=== PATIENT | male | born 1955 | race Caucasian/White ===

== ENCOUNTER → 2016-08-11 | Outpatient (CLI) | payer OTHER ==
[~2016-08-11] MED LIST: CHLO125TA PO; LOSA100T36 PO; PERCOCET PO; SPIRONOLACTONE PO; [UNRECOGNIZED DRUG - OTHER] SUBQ; apidra SQ; cephalexin PO; lantus insulin SUBQ; metformin PO; vit d2 PO
--- NOTE | 2016-08-11 13:08 | REP ---
RIGHT BREAST ULTRASOUND: 08/11/2016. Clinical history: The patient reports palpable finding 7 o'clock right breast. Comparison: Diagnostic mammogram today, breast ultrasound, diagnostic mammogram 10/12/2015. Findings: Sonographic evaluation of the lower outer quadrant right breast where the patient notes a palpable finding at the 7 o'clock position. There is heterogeneous predominately hypoechoic fatty tissue evident. There is no mass, cyst, architectural distortion or dilated duct. Impression: 1. Negative right breast ultrasound. No ultrasonographic finding. Please see mammogram report this date for final assessment and recommendation. Signed by Twan Mike MD 08/11/2016 04:43 P
--- NOTE | 2016-08-11 13:09 | REP ---
DIAGNOSTIC BILATERAL MAMMOGRAM: 08/11/2016. Clinical history: Palpable lump right breast lower outer quadrant. Similar complaint last year with prior diagnostic mammogram and breast ultrasound 10/12/2015. Findings: Standard two-view mammography performed with a triangle marker over the palpable finding placed by the patient in the lower outer quadrant right breast about the 7 o'clock position. The breasts are almost entirely fat. There is no evidence of gynecomastia. There is no soft tissue mass, clustered microcalcification or other secondary sign of malignancy. No tissue asymmetry. Axillary node with fatty replacement noted on the left side. A few skin calcifications are seen. Right breast ultrasound. Sonographic evaluation of the palpable area lower outer quadrant right breast showed no sonographic evidence of mass, architectural distortion, cyst or dilated ducts. Impression: 1. BIRADS ACR category 2, benign. Benign findings. No evidence of malignancy. A few skin calcifications are noted and a benign axillary node on the left but no finding in the palpable area described by the patient in the lower outer quadrant right breast. This mammogram was interpreted with the aid of an FDA-approved computer-aided detection system. A. Negative x-ray reports should not delay biopsy if a dominant or clinically suspicious mass is present. B. Four to eight percent of cancers are not identified by x-ray. C. Adenosis and dense breasts may obscure an underlying neoplasm. The patient letter being requested is M1 male. Signed by Twan Mike MD 08/11/2016 04:43 P
== END ==
LOC: M RAD 11:23
PROVIDERS: ATTEND Family Medicine
DX: N62 Hypertrophy of breast (principal)
CPT/HCPCS: 76642; G0204

== ENCOUNTER → 2016-10-03 | Outpatient (CLI) | payer OTHER | LOC: M LAB 07:58 | PROVIDERS: ATTEND Physician Assistant Medical | DX: E11.65 Type 2 diabetes mellitus with hyperglycemia (principal); E83.51 Hypocalcemia ==

== ENCOUNTER → 2016-12-04 | Outpatient (CLI) | payer OTHER ==
--- NOTE | 2016-12-05 02:28 | REP ---
Clinical: Acute cough . Comparison: 05/18/2008 . Technique: PA and lateral. Findings: The mediastinum and cardiac silhouette are normal. The lung tinajero are clear and without acute consolidation, effusion, or pneumothorax. The skeletal structures are intact and normal. Impression: 1. No acute cardiopulmonary process. Signed by Ray Lew MD 12/05/2016 02:19 A
== END ==
LOC: M WUC 12:47
PROVIDERS: ATTEND Physician Assistant
DX: R05 Cough (principal); R50.9 Fever, unspecified

== ENCOUNTER → 2017-02-14 | Outpatient (REF) | payer OTHER ==
[2017-02-14 16:48] LABS: ANION GAP 9 MEQ/L (8-16); BLOOD UREA NITROGEN 13 MG/DL (7-18); CALCIUM LEVEL 9.6 MG/DL (8.8-10.2); CARBON DIOXIDE LEVEL 27 MEQ/L (21-32); CHLORIDE LEVEL 105 MEQ/L (98-107); CREATININE FOR GFR 0.74 MG/DL (0.70-1.30); GLOMERULAR FILTRATION RATE > 60.0 (>49); GLUCOSE, FASTING 107 MG/DL (80-110); MAGNESIUM LEVEL 2.2 MG/DL (1.8-2.4); POTASSIUM SERUM 4.2 MEQ/L (3.5-5.1); SODIUM LEVEL 141 MEQ/L (136-145)
== END ==
LOC: M SFHCCLAY 11:08
PROVIDERS: ATTEND Family Medicine
DX: E11.40 Type 2 diabetes mellitus with diabetic neuropathy, unspecified (principal); Z79.4 Long term (current) use of insulin; I10 Essential (primary) hypertension

== ENCOUNTER → 2018-02-06 | Outpatient (REF) | payer OTHER ==
[2018-02-07 11:37] LABS: ANION GAP 11 MEQ/L (8-16); BLOOD UREA NITROGEN 19 MG/DL (7-18); CALCIUM LEVEL 8.8 MG/DL (8.8-10.2); CARBON DIOXIDE LEVEL 28 MEQ/L (21-32); CHLORIDE LEVEL 99 MEQ/L (98-107); CREATININE FOR GFR 0.94 MG/DL (0.70-1.30); GLOMERULAR FILTRATION RATE > 60.0 (>49); GLUCOSE, FASTING 169 MG/DL (70-100); POTASSIUM SERUM 3.4 MEQ/L (3.5-5.1); SODIUM LEVEL 138 MEQ/L (136-145)
[2018-02-07 15:35] LABS: ESTIMATED AVERAGE GLUCOSE 169 MG/DL (60-110); HEMOGLOBIN A1c 7.5 %
== END ==
LOC: M SFHCCLAY 16:27
DX: E11.9 Type 2 diabetes mellitus without complications (principal); I10 Essential (primary) hypertension

== ENCOUNTER 2018-07-22 15:31 | Observation (INO) | payer OTHER ==
[~2018-07-22] VITALS: Ht 167.6 cm; Wt 117.5 kg
[~2018-07-22 15:31] MED LIST changes: -LOSA100T36 PO; +LOSA100T50 PO
--- NOTE | 2018-07-22 16:44 | REP ---
CT Head without contrast HISTORY: Infarction COMPARISON: MR 02/14/2008 Areas of decreased attenuation are present in the periventricular white matter. This represents small-vessel ischemic disease. There is no intraparenchymal hemorrhage, acute infarct, mass or midline shift. The ventricular system and cortical sulci are dilated consistent with mild volume loss. There is no extra cerebral collection. There is no fracture. The visualized sinuses are clear. IMPRESSION: 1. Small vessel ischemic disease. 2. Mild volume loss. Electronically Signed by Morgan Zamora MD 07/22/2018 04:36 P
[2018-07-22 16:54] LABS: BASO % 0.3 % (0.0-1.0); EOS # 0.1 10^3/uL (0.0-0.50); EOS % 0.5 % (0.0-3.0); HEMATOCRIT 47.5 % (42.0-52.0); HEMOGLOBIN 16.6 g/dl (13.5-17.5); LYMPH # 2.7 10^3/uL (1.5-4.5); LYMPH % 25.7 % (24.0-44.0); MEAN CORPUSCULAR HGB CONC 34.9 g/dl (32.0-36.5); MEAN CORPUSCULAR VOLUME 88.8 fl (80.0-96.0); MONO # 0.8 10^3/uL (0.0-0.8); MONO % 7.6 % (0.0-5.0); NEUTROPHILS # 6.9 10^3/uL (1.8-7.7); NEUTROPHILS % 65.1 % (36.0-66.0); RED BLOOD COUNT 5.35 10^6/uL (4.30-6.10); WHITE BLOOD COUNT 10.7 10^3/uL (4.0-10.0)
[2018-07-22 17:27] LABS: INR 0.87; PLATELET COUNT, AUTOMATED 253 10^3/uL (150-450); PROTHROMBIN TIME 11.9 SECONDS (12.1-14.4)
[2018-07-22 17:28] LABS: PARTIAL THROMBOPLASTIN TIME 23.8 SECONDS (25.4-37.6)
[2018-07-22 17:35] LABS: ALBUMIN 3.8 GM/DL (3.2-5.2); ALT/SGPT 34 U/L (12-78); BILIRUBIN,DIRECT < 0.1 MG/DL (0.0-0.2); BILIRUBIN,TOTAL 0.3 MG/DL (0.2-1.0); BLOOD UREA NITROGEN 24 MG/DL (7-18); CALCIUM LEVEL 9.4 MG/DL (8.8-10.2); CARBON DIOXIDE LEVEL 24 MEQ/L (21-32); CHLORIDE LEVEL 100 MEQ/L (98-107); CPK CREATINE PHOSPHOKINASE 202 U/L (39-308); CREATININE FOR GFR 0.89 MG/DL (0.70-1.30); FREE T4 1.17 NG/DL (0.76-1.46); GLOMERULAR FILTRATION RATE > 60.0 (>49); GLUCOSE, FASTING 154 MG/DL (70-100); LIPASE 143 U/L (73-393); MB/CK RELATIVE INDEX 1.34 (< OR =4); NT-PRO BNP 63 PG/ML (<125); POTASSIUM SERUM 4.1 MEQ/L (3.5-5.1); SODIUM LEVEL 136 MEQ/L (136-145); THYROID STIMULATING HORMONE 0.794 uIU/ML (0.358-3.740); TOTAL PROTEIN 7.5 GM/DL (6.4-8.2); TROPONIN I < 0.02 NG/ML (< 0.10)
--- NOTE | 2018-07-22 18:33 | REP ---
Portable chest x-ray: Two views: History: CVA. Comparison study: December 04, 2016. Findings: EKG electrodes are seen. The lungs are well inflated and clear. The pleural angles are sharp. Heart is not felt to be enlarged. Pulmonary vasculature is not increased. No significant bony abnormality. Impression: No active disease. Electronically Signed by Joshua Ramey MD 07/23/2018 08:08 A
[2018-07-22] MEDS ORDERED: TRAZ-163 PO (19:53)
[2018-07-22] MEDS ORDERED: BUPR300T34 PO (19:53)
[2018-07-22] MEDS ORDERED: CHLO25TA PO (19:53)
[2018-07-22] MEDS ORDERED: ADME100I SC (19:53)
[2018-07-22] MEDS ORDERED: STEG5TAB PO (19:53)
[2018-07-22] MEDS ORDERED: LORA1TAB12 PO (19:53)
[2018-07-22] MEDS ORDERED: TRUL0.5I SC (19:53)
[2018-07-22] MEDS ORDERED: METF500T13 PO (19:53)
[2018-07-22] MEDS ORDERED: SPIR-10 PO (19:53)
[2018-07-22] MEDS ORDERED: BASA100I SC (19:53)
[2018-07-22] MEDS ORDERED: GABA-843 PO (19:53)
[2018-07-22] MEDS ORDERED: AMLO5TAB6 PO (19:53)
[2018-07-22] MEDS ORDERED: LORazepam 2 MG/ML VIAL (J2060) IV STA (19:53)
--- NOTE | 2018-07-22 20:12 | ECGEPIP ---
Stationary ECG Study [facility] - ED Test Date: 2018-07-22 Pat Name: GULSHAN CORDON Department: Room: - Gender: M Radio Repairer Domestic: PARVEEN : 1955 Requested By: Kyle Figueredo Order Number: [id number] Reading MD: Kyle Figueredo Measurements Intervals [place] Rate: 90 P: 76 SD: 195 QRS: -18 QRSD: 119 T: 65 QT: 361 QTc: 443 Interpretive Statements SINUS RHYTHM WITH OCCASIONAL VENTRICULAR PREMATURE COMPLEXES WITH OCCASIONAL SUP SUPRAVENTRICULAR PREMATURE COMPLEXES MODERATE INTRAVENTRICULAR CONDUCTION DELAY NONSPECIFIC T-WAVE ABNORMALITY DELAYED R WAVE PROGRESSION CW 12/15/13 RATE INCREASED INCREASED ECTOPY Electronically Signed On 07-22-2018 20:12:14 EST by Kyle Figueredo
--- NOTE | 2018-07-22 21:22 | REPVR ---
EXAM: MR Angiogram Head Without Contrast, Arteries EXAM DATE/TIME: 07/22/2018 8:40 PM CLINICAL HISTORY: 63 years old, male; Signs and symptoms; Dizziness and giddiness and weakness; Additional info: CVA TECHNIQUE: MR angiogram head without contrast. Exam focused on the arteries. COMPARISON: CT Head without contrast 07/22/2018 4:23 PM FINDINGS: Anterior circulation: Normal flow signal and luminal caliber in the petrous, cavernous and supraclinoid internal carotid arteries. Normal appearance of the anterior cerebral artery branches and middle cerebral artery branches through the MCA trifurcations. No occlusion, high-grade focal stenosis or dissection. No aneurysm. Posterior circulation: Normal distal vertebral arteries, with patent normal caliber basilar artery, and normal superior cerebellar and posterior cerebral arteries. No occlusion, high-grade stenosis or aneurysm. Right P1 segment is diminutive and normal caliber right posterior cerebral artery is supplied by a posterior communicating artery IMPRESSION: Unremarkable MR angiogram of the [place] and intracranial vertebrobasilar system. Variant anatomy of the right posterior circulation without hemodynamic compromise Electronically signed by: Eyad Mclaughlin On 07/22/2018 21:22:21 PM
--- NOTE | 2018-07-22 21:28 | REPVR ---
EXAM: MR Head Without Contrast EXAM DATE/TIME: 07/22/2018 8:40 PM CLINICAL HISTORY: 63 years old, male; Signs and symptoms; Dizziness and other: Shaking, confusion; Additional info: CVA TECHNIQUE: MR of the head without contrast. COMPARISON: CT Head without contrast 07/22/2018 4:23 PM FINDINGS: No abnormal restriction of diffusion to indicate acute CVA. Midline structures and cerebellar tonsillar position appear normal. Ventricles, cisterns and sulci are symmetrically prominent. No intracranial mass, midline shift or abnormal extra-axial fluid. No acute intracranial hemorrhage. No abnormal white matter signal on FLAIR and T2 sequences. Optic chiasm and pituitary infundibulum appear normal. Normal vascular flow voids in major intracranial arteries and dural venous sinuses. Paranasal sinuses are clear. Mastoid air cells are normally aerated. Optic globes and orbits are unremarkable. IMPRESSION: No acute intracranial abnormality. Mild age-related symmetric atrophy Electronically signed by: Eyad Mclaughlin On 07/22/2018 21:28:28 PM
[2018-07-22] MEDS ORDERED: NS 1,000 ML IV SCH (23:28)
[2018-07-22] MEDS ORDERED: ACETAMINOPHEN TAB 650MG DOSE (2X325MG) PO PRN (23:30)
[2018-07-22] MEDS ORDERED: METOCLOPRAMIDE 10 MG TAB PO PRN (23:30)
[2018-07-22] MEDS ORDERED: MECLIZINE 12.5 MG TAB PO PRN (23:45)
[2018-07-22] MEDS ORDERED: GLUCAGON FOR INJ 1 MG VIAL (J1610) SC PRN (23:45)
[2018-07-22] MEDS ORDERED: GLUCOSE 4 GM CHEW TABLET PO PRN (23:45)
[2018-07-22] MEDS ORDERED: DEXTROSE 50% 50 ML SYRINGE IV PRN (23:45)
[2018-07-22] MEDS: GABAPENTIN 300 MG CAP PO SCH (23:57)
[2018-07-23] MEDS: HEPARIN SOD (PORCINE) 5000 UNITS/ML VIAL SC SCH ×3 (06:34→22:57)
--- NOTE | 2018-07-23 06:57 | HPE ---
DATE OF ADMISSION: 07/22/2018 CHIEF COMPLAINT: Intermittent dizziness and confusion. HISTORY OF PRESENT ILLNESS: The patient is a 63-year-old male. He has significant past medical history of depression, anxiety, diabetes with neuropathy, hypertension. He presents to the emergency room with a 2-week complaint of what he describes as intermittent confusion. States he may be driving to [employer] and find himself somewhere else. He is forgetful. He also states he has dizziness. It is somewhat positional. He notices it when he gets up. He does not describe it as vertiginous symptoms. He denies any slurred speech but states last week he forgot how to spell certain words. He does say his mood has kind of been poor lately, though he does not admit to feeling depressed or loss in interest in things he previously does. He denies any headache. He denies any cough, fevers, chills, chest pain, abdominal pain, urinary symptoms, constipation, or diarrhea. In the emergency room, he appears nontoxic. He had an MRA/MRI of the brain, CT, as well as chest x-ray, which were all unremarkable. I believe the patient's symptoms may be secondary to depression in the elderly versus possible benign paroxysmal positional vertigo (BPPV) and rule out hypoglycemia versus orthostatics. Will also assess for reversible causes of possible dementia. The patient again appears nontoxic. PAST MEDICAL HISTORY: See history of present illness (HPI). PAST SURGICAL HISTORY: He has had hernia repair and tonsillectomy. ALLERGIES: To SULFA ANTIBIOTICS; reaction is unknown. HOME MEDICATIONS: - Norvasc - bupropion - chlorthalidone - gabapentin - losartan - metformin - spironolactone - multiple insulin analogs including Trulicity, Basaglar, Admelog - Steglatro - metformin - trazodone SOCIAL HISTORY: Denies tobacco, alcohol, illicit drug use. FAMILY HISTORY: Is noncontributory. REVIEW OF SYSTEMS: A 12-point review of systems was completed, all of which were negative except those listed in the HPI. ADMISSION VITAL SIGNS: Temperature 97.7, pulse of 93, respirations of 20, blood pressure 185/86, saturating at 95% on room air. PHYSICAL EXAMINATION: General: He is well nourished, in no apparent distress. Head: Is normocephalic, atraumatic. Eyes: Extraocular movements are intact. Pupil equal, round, reactive to light. Neck: Is supple. No JVP. Lungs: Are clear to auscultation bilaterally. No crackles, wheezes, rales, or rhonchi. Cardiovascular: Regular rate, rhythm. Normal S1, S2. No murmurs, gallops, or rubs. Abdomen: Is soft, nontender, nondistended. Positive bowel sounds. No rebound or guarding. Extremities: No pitting edema or calf tenderness. Skin: Is intact. No rashes, lesions, or breakdown. Neurological exam: Alert and oriented (A and O) times three. No focal deficits appreciated on exam. Coordination is intact. LABS AND IMAGING COMPLETED IN THE EMERGENCY ROOM: White count of 10, hemoglobin and hematocrit of 16/47, platelet count of 253. Coagulation panel within normal limits. Chemistry shows BUN and creatinine of 24/0.89. Troponins are negative. TSH within normal limits. UA is unremarkable. Blood sugar of 134. MRA of the brain shows unremarkable MRA. MRI: No acute intracranial abnormality. Chest x-ray: No active disease. Head CT: Small vessel ischemic disease. ASSESSMENT AND PLAN: 1. Dizziness. This is possibly secondary to polypharmacy versus questionable episode of hypoglycemia versus BPPV versus orthostatics. Will do daily orthostatics. Will fluid hydrate. Will place the patient on meclizine and Reglan. Will get physical therapy (PT) evaluation. Will keep the patient on telemetry to rule out any arrhythmia. Will recycle the troponins and EKG. 2. Intermittent confusion. Will assess for any reversible causes of dementia. Will get a thyroid-stimulating hormone (TSH), B12, and rapid plasma reagin (RPR). It does not seem to be an infectious etiology. This may also be secondary to depression. For the rest of his chronic medical conditions: 3. For diabetes, we will hold most of his insulin analogs. Will hold metformin. Will place him on 64 units of Lantus as well as insulin sliding scale and gabapentin for diabetic nephropathy. 4. For hypertension, continue chlorthalidone, losartan, spironolactone. 5. Supportive deep venous thrombosis (DVT) prophylaxis. Heparin subcutaneously. 6. Gastrointestinal (GI) prophylaxis. Not indicated. 7. Diet. Cardiac, diabetic diet. Patient to be placed on the observation unit.
[2018-07-23 07:05] LABS: HEMATOCRIT 45.6 % (42.0-52.0); HEMOGLOBIN 15.8 g/dl (13.5-17.5); MEAN CORPUSCULAR HGB CONC 34.6 g/dl (32.0-36.5); MEAN CORPUSCULAR VOLUME 89.6 fl (80.0-96.0); PLATELET COUNT, AUTOMATED 249 10^3/uL (150-450); RED BLOOD COUNT 5.09 10^6/uL (4.30-6.10); WHITE BLOOD COUNT 8.1 10^3/uL (4.0-10.0)
[2018-07-23 07:28] LABS: HEMOGLOBIN A1c 7.4 %
[2018-07-23] MEDS: HumaLOG INSULIN (NovoLOG) PER UNIT SC SCH ×3 (07:30→17:51)
[2018-07-23 07:47] LABS: BLOOD UREA NITROGEN 19 MG/DL (7-18); CALCIUM LEVEL 9.1 MG/DL (8.8-10.2); CARBON DIOXIDE LEVEL 27 MEQ/L (21-32); CHLORIDE LEVEL 101 MEQ/L (98-107); GLOMERULAR FILTRATION RATE > 60.0 (>49); GLUCOSE, FASTING 119 MG/DL (70-100); POTASSIUM SERUM 3.2 MEQ/L (3.5-5.1); SODIUM LEVEL 137 MEQ/L (136-145); TROPONIN I < 0.02 NG/ML (< 0.10)
[2018-07-23] MEDS: GABAPENTIN 300 MG CAP PO SCH (08:56)
[2018-07-23] MEDS: amLODIPine 5 MG TAB PO SCH (08:57)
[2018-07-23] MEDS: LOSARTAN 50 MG TAB PO SCH (09:02)
[2018-07-23] MEDS: CHLORTHALIDONE 25 MG TAB PO SCH (09:03)
[2018-07-23] MEDS: LEVEMIR (INSULIN DETEMIR) 1 UNITS/0.01ML SC SCH (09:05)
[2018-07-23] MEDS: buPROPion **XL** TABLET 150MG (WELLBUTRIN XL) PO SCH (09:33)
[2018-07-23] MEDS: SPIRONOLACTONE 12.5MG PER 1/2 TABLET PO SCH (09:33)
[2018-07-23] MEDS ORDERED: POTASSIUM CHLORIDE 10 MEQ SR TABLET PO ONE ×2 (10:00→18:00)
[2018-07-23 13:48] VITALS: BP 130/80
--- NOTE | 2018-07-23 17:33 | IPNPDOC ---
Subjective Date Seen The patient was seen on 07/23/18. Subjective Chief Complaint/HPI Feels well this am. No dizziness currently. Mental status clear Constitutional: Denies: Chills, Fever Pulmonary: Denies: Dyspnea, Cough Cardiovascular: Denies: Chest Pain, Palpitations Gastrointestinal: Denies: Nausea, Vomiting, Abdominal Pain, Diarrhea, C onstipation Genitourinary: Reports: Frequency Objective Physical Examination General Exam: Positive: Alert, No Acute Distress Chest Exam: Positive: Clear to auscultation, Normal air movement Heart Exam: Positive: Rate Normal, Regular Rhythm Abdomen Exam: Positive: Normal bowel sounds, Soft; Negative: Tenderness Extremity Exam: Negative: Edema Assessment /Plan Problems (1) Dizziness Status: Acute Response to Treatment: Improving Problem Text: His dizziness can occur in any position - not orthostatic or postural. Describes this as a "fuzzy headed feeling". not off balance. No syncope. No associated focal neurologic defecits. Symptoms have been occuring for the past few weeks since switching to Steglatro (preferred by insurance) We stopped this, gave KAREN and will monitor trend (2) Confusion Status: Resolved Problem Text: May be related to medications. Either related to the Steglatro which is new or from his Gabapentin which he has been using regularly for the past few weeks (normally only take s dose from time to time. MRI did not show any acute findings TSH normal B12 and RPR pending (3) Diabetes Status: Chronic Response to Treatment: Stable Problem Text: HbA1c shows fair control but meds ahve been recently adjusted due to insurance preferance. we have held the Stglatro due to above potential side efects. Monitor trends. Plan/VTE VTE Prophylaxis Ordered?: Yes (SQ heparin) VS, I&O, 24H, Fishbone Vital Signs/I&O Vital Signs Date Time Temp Pulse Resp B/P (MAP) Pulse Ox O2 Delivery O2 Flow Rate FiO2 07/23/18 13:48 98.8 77 18 130/80 (97) 94 07/22/18 22:01 Room Air Laboratory Data 24H LABS Laboratory Tests 2 07/22/18 17:35: Urine Color STRAW, Urine Appearance CLEAR, Urine pH 5.0, Urine Specific [place] 1.024, Urine Protein NEGATIVE, Urine Glucose (UA) 3+H, Urine Ketones NEGATIVE, Urine Blood 1+H, Urine Nitrite NEGATIVE, Urine Bilirubin NEGATIVE, Urine Urobilinogen 0.2, Urine Leukocyte Esterase NEGATIVE, Urine WBC (Auto) 0, Urine RBC (Auto) 3, Urine Hyaline Casts (Auto) 0, Urine Bacteria (Auto) NEGATIVE, Urine Squamous Epithelial Cells 0, Urine Sperm (Auto) 07/23/18 06:38: Nucleated Red Blood Cells % (auto) 0.0, Anion Gap 9, Glomerular Filtration Rate > 60.0, Estimated Mean Plasma Glucose 166H, Hemoglobin A1c 7.4, Blood Urea Nitrogen 19H, Creatinine 0.80, Sodium Level 137, Potassium Level 3.2#L, Chloride Level 101, Carbon Dioxide Level 27, Calcium Level 9.1, Troponin I < 0.02 07/23/18 07:22: Bedside Glucose (Misc Panel) 108 07/23/18 14:15: Bedside Glucose (Misc Panel) 113 07/23/18 16:27: Bedside Glucose (Misc Panel) 170H CBC/BMP Laboratory Tests 07/23/18 06:38 Red Blood Count 5.09, Mean Corpuscular Volume 89.6, Mean Corpuscular Hemoglobin 31.0, Mean Corpuscular Hemoglobin Concent 34.6, Red Cell Distribution Width 12.7, Calcium Level 9.1 Microbiology Microbiology 07/22/18 Blood Culture - Preliminary, Resulted No growth after 24 hours . All specim... 07/22/18 Blood Culture - Preliminary, Resulted No growth after 24 hours . All specim... HANSA THORNTON PA-C Jul 23, 2018 17:33
[2018-07-23 18:08] VITALS: BP_SYST 158; BP_SYST 162; BP_DIAS 80; BP_DIAS 85
[2018-07-23 22:00] VITALS: BP 128/60
[2018-07-24 06:00] VITALS: BP 137/69
[2018-07-24] MEDS: HEPARIN SOD (PORCINE) 5000 UNITS/ML VIAL SC SCH (06:14)
[2018-07-24 06:28] LABS: BLOOD UREA NITROGEN 20 MG/DL (7-18); CALCIUM LEVEL 9.1 MG/DL (8.8-10.2); CARBON DIOXIDE LEVEL 27 MEQ/L (21-32); CHLORIDE LEVEL 100 MEQ/L (98-107); CREATININE FOR GFR 0.86 MG/DL (0.70-1.30); GLOMERULAR FILTRATION RATE > 60.0 (>49); GLUCOSE, FASTING 140 MG/DL (70-100); POTASSIUM SERUM 3.3 MEQ/L (3.5-5.1); SODIUM LEVEL 137 MEQ/L (136-145)
[2018-07-24] MEDS: LEVEMIR (INSULIN DETEMIR) 1 UNITS/0.01ML SC SCH (08:10)
[2018-07-24] MEDS: HumaLOG INSULIN (NovoLOG) PER UNIT SC SCH ×2 (08:10→12:24)
[2018-07-24 08:11] VITALS: BP 141/73
[2018-07-24] MEDS: LOSARTAN 50 MG TAB PO SCH (08:11)
[2018-07-24] MEDS: buPROPion **XL** TABLET 150MG (WELLBUTRIN XL) PO SCH (08:11)
[2018-07-24] MEDS: amLODIPine 5 MG TAB PO SCH (08:11)
--- NOTE | 2018-07-24 08:34 | ECGEPIP ---
Stationary ECG Study [facility] Test Date: 2018-07-23 Pat Name: GULSHAN CORDON Department: Room: 06-19 Gender: M Office Engineer: simone : 1955 Requested By: PRIYA SUNDAY Order Number: [id number] Reading MD: Qi Bajwa Measurements Intervals [place] Rate: 67 P: 79 MS: 221 QRS: -5 QRSD: 125 T: 31 QT: 403 QTc: 427 Interpretive Statements SINUS RHYTHM WITH FIRST DEGREE AV BLOCK AND NON-CONDUCTED PAC NONSPECIFIC STT-WAVE ABNORMALITY SIMILAR TO 07/22/18, PVC'S ARE NO LONGER PRESENT Electronically Signed On 07-24-2018 8:34:23 EST by Qi Bajwa
[2018-07-24 10:53] LABS: VITAMIN B12 LEVEL 366 PG/ML (232-1245)
[2018-07-24] MEDS ORDERED: KLOR10TA76 PO (11:06)
[2018-07-24 11:14] LABS: MAGNESIUM LEVEL 2.2 MG/DL (1.8-2.4)
[2018-07-24 11:27] LABS: HEMATOCRIT 48.2 % (42.0-52.0); HEMOGLOBIN 16.2 g/dl (13.5-17.5); MEAN CORPUSCULAR HEMOGLOBIN 30.6 pg (27.0-33.0); MEAN CORPUSCULAR HGB CONC 33.6 g/dl (32.0-36.5); MEAN CORPUSCULAR VOLUME 91.1 fl (80.0-96.0); PLATELET COUNT, AUTOMATED 277 10^3/uL (150-450); RED BLOOD COUNT 5.29 10^6/uL (4.30-6.10); WHITE BLOOD COUNT 8.7 10^3/uL (4.0-10.0)
[2018-07-24] MEDS ORDERED: POTASSIUM CHLORIDE 10 MEQ SR TABLET PO ONE (12:00)
[2018-07-24] MEDS: SPIRONOLACTONE 12.5MG PER 1/2 TABLET PO SCH (12:24)
[2018-07-24] MEDS: CHLORTHALIDONE 25 MG TAB PO SCH (12:25)
[2018-07-25] MEDS ORDERED: POTASSIUM CHLORIDE 10 MEQ SR TABLET PO SCH (09:00)
--- NOTE | 2018-07-25 11:24 | DSES ---
DATE OF ADMISSION: 07/22/2018 DATE OF DISCHARGE: 07/24/2018 The patient is a 63-year-old patient of Dr. Campa is to presented with feeling of dizziness and confusion. He had been driving to [place] but found himself heading toward [employer], as though he had forgotten how to get to [place], and he has a feeling that he describes as a fullness in his head. These symptoms have been going on intermittently for the past few weeks. He relates that at the beginning of the year his insurance adjusted his diabetic medications, and he is been now on Steglatro, which is preferred by his insurance. He thinks that some of his symptoms have been going on since starting this Steglatro. He also relates that he has been using his gabapentin more often. Normally he only takes this on occasion but has been taking it pretty much scheduled twice a day for the last couple weeks as well for increased neuropathy symptoms, which he also reports he thinks was from the Steglatro. PERTINENT LABORATORIES ON ADMISSION: White count 10.7, hemoglobin 16, platelets 253,000. Sodium 136, potassium 4.1, BUN 24, creatinine 0.89. RPR was nonreactive. TSH 0.79, B12 of 366. MRI of the brain did not show any acute events. HOSPITAL COURSE: 1. The patient was admitted for a some episodic dizziness and confusion. His MRI showed some mild atrophy. No other acute events. His dementia workup was fairly unrevealing. His B12 is 366 but is not low. At this point, it is thought that his symptoms may be related to the Steglatro, which has been discontinued, or perhaps the use of the gabapentin twice a day, which he is advised to cut back to the occasional use on an as-needed basis, as he had been using it before. He also developed some hypokalemia in the hospital, which we were uncertain why that happened, but it appears he has had some tendency toward hypokalemia in the past. On the date of discharge he does feel a little bit shaky. His telemetry shows sinus rhythm with occasional premature atrial contraction (PAC) but otherwise no arrhythmias during the hospitalization. His blood sugar is normal. His vital signs are stable. He feels as though he is stable to go home. He does have some tendency toward anxiety, for which he uses lorazepam on an as-needed basis, and he thinks that he is just feeling a little anxious but feels better after hearing the results of all of his workup. At this point we will replace his potassium further with 40 mEq of potassium prior to going home and then send him home with 20 mEq daily. A magnesium level has been drawn and will need to be followed up as an outpatient. 2. Diabetes. As above, the Steglatro has been discontinued. While in the hospital we maintained him on insulin only but at home will have him go back on all of his usual medications, including his Basaglar and Trulicity. He will remain off the Steglatro. His hemoglobin A1c in the hospital was 7.4. He will need monitoring of his blood sugars as an outpatient and further adjustments to his diabetic regimen as an outpatient. The patient is stable for discharge home. He will receive potassium 40 mEq prior to discharge. A magnesium level has been ordered off the blood and lab and is pending at the time of discharge. He will be discharged home on potassium 20 mEq daily, Admelog per sliding scale, amlodipine 5 mg daily, Basaglar 64 units daily, bupropion 300 mg daily, chlorthalidone 25 mg daily, gabapentin 300 mg twice a day as needed, lorazepam 0.5 mg twice a day as needed, losartan 100 mg daily, metformin 1000 mg twice a day, spironolactone 12.5 mg daily, trazodone 150 mg at bedtime, Trulicity 1.5 mg weekly. His Steglatro has been discontinued. DISCHARGE DIAGNOSES: 1. Dizziness. 2. Confusion. 3. Hypokalemia. 4. Diabetes mellitus, type 2. 5. Anxiety
== END 2018-07-24 14:25 | disposition home or self-care (01) ==
LOC: M ED 15:31 → M ED INP 23:28 → M MSPAV 07-23 13:46
PROVIDERS: ADMIT Internal Medicine; ATTEND Family Medicine
DX: R42 Dizziness and giddiness (principal); R41.0 Disorientation, unspecified; E87.6 Hypokalemia; E11.40 Type 2 diabetes mellitus with diabetic neuropathy, unspecified; Z79.84 Long term (current) use of oral hypoglycemic drugs; I10 Essential (primary) hypertension; F41.9 Anxiety disorder, unspecified; F32.9 Major depressive disorder, single episode, unspecified; Z79.899 Other long term (current) drug therapy; Z88.2 Allergy status to sulfonamides
CPT/HCPCS: 36415; 70450; 70544; 70551; 71045; 80048; 80076; 81001; 82550; 82553; 82607; 83036; 83690; 83735; 83880; 84439; 84443; 85025; 85027; 85610; 85730; 86780; 86850; 86900; 86901; 87040; 93005; 93041; 94760; 96372; 96374; 97161; 99285; J2060

== ENCOUNTER → 2018-08-20 | Outpatient (CLI) | payer OTHER ==
[~2018-08-20] MED LIST changes: +ADME100I SC; +AMLO5TAB6 PO; +BASA100I SC; +BUPR300T34 PO; +CHLO25TA PO; +GABA-843 PO; +KLOR10TA76 PO; +LORA1TAB12 PO; +METF500T13 PO; +SPIR-10 PO; +STEG5TAB PO; +TRAZ-163 PO; +TRUL0.5I SC
[2018-08-20 12:27] LABS: CREATININE, URINE 71.3 MG/DL; MAU/CREAT RATIO 193.5 MCG/MG (0.0-30.0)
[2018-08-20 13:01] LABS: BLOOD UREA NITROGEN 19 MG/DL (7-18); CALCIUM LEVEL 9.2 MG/DL (8.8-10.2); CARBON DIOXIDE LEVEL 24 MEQ/L (21-32); CHLORIDE LEVEL 103 MEQ/L (98-107); CHOLESTEROL LEVEL 163 MG/DL (<200); CHOLESTEROL RISK RATIO 2.202 (<5); CREATININE FOR GFR 0.75 MG/DL (0.70-1.30); GLOMERULAR FILTRATION RATE > 60.0 (>49); GLUCOSE, FASTING 132 MG/DL (70-100); HDL CHOLESTEROL 74 MG/DL (>40); LDL CHOLESTEROL 72 MG/DL (<100); NON-HDL-C 89 MG/DL; SODIUM LEVEL 137 MEQ/L (136-145); TRIGLYCERIDES LEVEL 84 MG/DL (<150)
[2018-08-21 10:27] LABS: HIV 1&2 SCREEN CENTAUR NEGATIVE (NEGATIVE)
== END ==
LOC: M LAB 10:50
PROVIDERS: ATTEND Family Medicine
DX: E11.9 Type 2 diabetes mellitus without complications (principal); Z11.4 Encounter for screening for human immunodeficiency virus [HIV]; Z11.59 Encounter for screening for other viral diseases

== ENCOUNTER → 2018-10-24 | Outpatient (CLI) | payer OTHER ==
[2018-10-24 10:44] LABS: BLOOD UREA NITROGEN 15 MG/DL (7-18); CALCIUM LEVEL 8.2 MG/DL (8.8-10.2); CARBON DIOXIDE LEVEL 25 MEQ/L (21-32); CHLORIDE LEVEL 105 MEQ/L (98-107); CREATININE FOR GFR 0.84 MG/DL (0.70-1.30); GLOMERULAR FILTRATION RATE > 60.0 (>49); GLUCOSE, FASTING 200 MG/DL (70-100); POTASSIUM SERUM 4.2 MEQ/L (3.5-5.1); SODIUM LEVEL 139 MEQ/L (136-145)
== END ==
LOC: M LAB 09:47
PROVIDERS: ATTEND Nurse Practitioner Family
DX: E11.65 Type 2 diabetes mellitus with hyperglycemia (principal)

== ENCOUNTER 2018-12-23 06:12 | Day surgery (SDC) | payer OTHER ==
[~2018-12-23] VITALS: Ht 167.6 cm; Wt 120.7 kg
[~2018-12-23 06:12] MED LIST changes: +ALEV220T22 PO; +NS 1,000 ML IV ONE
[2018-12-23] MEDS ORDERED: PROPOFOL 200 MG/20 ML VIAL As Ordered ONE (07:36)
[2018-12-23] MEDS ORDERED: LIDOCAINE 2% INJ 100 MG/5 ML SDV (FOR ANES.) As Ordered ONE (07:36)
--- NOTE | 2018-12-23 08:22 | ROOR ---
Patient Name: Andrea Pacheco Procedure Date: 12/23/2018 8:01 AM Date of : 1955 Age: 63 Room: [facility] Gender: Male Note Status: Finalized Procedure: Total Colonoscopy to Cecum Indications: Screening for colorectal malignant neoplasm Providers: Chad Song MD Referring MD: Alfredo Campa MD Requesting Provider: Medicines: Monitored Anesthesia Care Complications: No immediate complications. Procedure: Pre-Anesthesia Assessment: - The heart rate, respiratory rate, oxygen saturations, blood pressure, adequacy of pulmonary ventilation, and response to care were monitored throughout the procedure. The Colonoscope was introduced through the anus and advanced to the cecum, identified by appendiceal orifice and ileocecal valve. The colonoscopy was performed without difficulty. The patient tolerated the procedure well. The quality of the bowel preparation was excellent. Findings: The perianal and digital rectal examinations were normal. Non-bleeding internal hemorrhoids were found during retroflexion. The hemorrhoids were small and Grade I (internal hemorrhoids that do not prolapse). Multiple small and large-mouthed diverticula were found in the recto-sigmoid colon, sigmoid colon and descending colon. The exam was otherwise without abnormality on direct and retroflexion views. Impression: - Non-bleeding internal hemorrhoids. - Diverticulosis in the recto-sigmoid colon, in the sigmoid colon and in the descending colon. - The examination was otherwise normal on direct and retroflexion views. - No specimens collected. - The exam was otherwise normal to the cecum. Recommendation: - Patient has a contact number available for emergencies. The signs and symptoms of potential delayed complications were discussed with the patient. Return to normal activities tomorrow. Written discharge instructions were provided to the patient. - High fiber diet. - Discharge patient to home. - Continue present medications. - Repeat colonoscopy in 10 years for screening purposes. - Return to referring physician. - The findings and recommendations were discussed with the patient's family. Chad Song MD Chad Song MD 12/23/2018 8:21:49 AM Electronically signed by Chad Song MD Number of Addenda: 0 Note Initiated On: 12/23/2018 8:01 AM Estimated Blood Loss: Estimated blood loss: none.
[2018-12-23 08:55] VITALS: BP 175/94
== END 2018-12-23 08:57 | disposition home or self-care (01) ==
LOC: M OPP 06:12
PROVIDERS: ATTEND Internal Medicine Gastroenterology
DX: Z12.11 Encounter for screening for malignant neoplasm of colon (principal); K64.0 First degree hemorrhoids; K57.30 Diverticulosis of large intestine without perforation or abscess without bleeding; Z79.4 Long term (current) use of insulin; Z79.899 Other long term (current) drug therapy

== ENCOUNTER 2019-06-23 03:54 | Emergency (ER) | payer MEDICARE, MEDICAID ==
[~2019-06-23] VITALS: Ht 167.6 cm; Wt 120.5 kg
[~2019-06-23 03:54] MED LIST changes: -AUGM500T34 PO; -BUPR300T34 PO; +BUPR300T92 PO; -JARD1TAB; -LORA1TAB12 PO; +LORA1TAB4 PO; -PRED20TA PO; -TRAZ-163 PO; +TRAZ-257 PO; -VENTAER
[2019-06-23] MEDS ORDERED: JARD1TAB (04:05)
[2019-06-23] MEDS ORDERED: VENTAER (04:05)
[2019-06-23] MEDS ORDERED: KETOROLAC 30 MG/ML VIAL (J1885) IV ONE (05:15)
[2019-06-23] MEDS ORDERED: IPRATROPIUM 0.5MG/ALBUTEROL 2.5MG INH SOL UD 3ML (DUONEB)(J7620) NEB ONE (05:15)
[2019-06-23] MEDS ORDERED: BUPIVACAINE LIPOSOME/PF 1.3% 20ML VIAL (13.3MG/ML)(EXPAREL)(C9290 PER1MG) INFIL ONE (05:15)
[2019-06-23] MEDS ORDERED: dexameTHASONE 20 MG/5 ML VIAL (J1100) IV ONE (05:15)
[2019-06-23 05:23] LABS: BASO % 0.3 % (0.0-1.0); EOS # 0.1 10^3/uL (0.0-0.5); HEMATOCRIT 46.9 % (42.0-52.0); HEMOGLOBIN 15.5 g/dl (13.5-17.5); LYMPH # 2.3 10^3/uL (1.5-5.0); LYMPH % 27.1 % (24.0-44.0); MEAN CORPUSCULAR VOLUME 90.7 fl (80.0-96.0); MONO # 0.9 10^3/uL (0.0-0.8); MONO % 9.9 % (0.0-5.0); NEUTROPHILS # 5.2 10^3/uL (1.5-8.5); NEUTROPHILS % 60.7 % (36.0-66.0); PLATELET COUNT, AUTOMATED 258 10^3/uL (150-450); RED BLOOD COUNT 5.17 10^6/uL (4.30-6.10); VENOUS BASE EXCESS 2.6 (-2.0-2.0); VENOUS HCO3 29.3 MEQ/L (23.0-27.0); VENOUS O2 SATURATION 73.3 % (60.0-80.0); VENOUS PARTIAL PRESSURE CO2 53.2 mmHg (38.0-50.0); VENOUS PARTIAL PRESSURE O2 39.7 mmHg (30.0-50.0); VENOUS PH 7.359 UNITS (7.330-7.430); VENOUS STANDARD HCO3 26.1 MEQ/L; VENOUS TOTAL CO2 30.9 MEQ/L (24.0-28.0); WHITE BLOOD COUNT 8.6 10^3/uL (4.0-10.0)
[2019-06-23] MEDS ORDERED: PRED20TA PO (05:30)
[2019-06-23] MEDS ORDERED: AUGM500T34 PO (05:30)
[2019-06-23 05:58] LABS: ALBUMIN 3.6 GM/DL (3.2-5.2); BILIRUBIN,DIRECT 0.1 MG/DL (0.0-0.2); BILIRUBIN,TOTAL 0.4 MG/DL (0.2-1.0); CK-MB VALUE MASS 3.8 NG/ML (<3.6); MB/CK RELATIVE INDEX 1.24 (< OR =4); THYROID STIMULATING HORMONE 1.54 uIU/ML (0.358-3.740); THYROXINE (T4) 10.6 UG/DL (4.5-12.0); TOTAL PROTEIN 7.3 GM/DL (6.4-8.2); TROPONIN I 0.02 NG/ML (< 0.10)
[2019-06-23 06:01] VITALS: BP 159/69
--- NOTE | 2019-06-23 08:10 | REP ---
Portable chest x-ray: Single view. History: Dyspnea and cough. Comparison study: July 22, 2018. Findings: The lungs are exposed at a lesser level of inspiration today. Bronchovascular markings are somewhat crowded at the bases as a result. No definite infiltrate. Cardiomediastinal silhouette is unchanged. Impression: Lesser level of inspiration. Otherwise no acute disease. Electronically Signed by Joshua Ramey MD 06/23/2019 08:02 A
--- NOTE | 2019-06-25 07:34 | ECGEPIP ---
[facility] - ED Test Date: 2019-06-23 Pat Name: GULSHAN CORDON Department: Room: - Gender: Male Marketing Services Manager: kk : 1955 Requested By: TIA MA Order Number: [id number] Reading MD: Loretta Boone Measurements Intervals [place] Rate: 84 P: 76 MA: 172 QRS: -7 QRSD: 101 T: 49 QT: 397 QTc: 471 Interpretive Statements SINUS RHYTHM FIRST DEGREE AV BLOCK WITH FREQUENT SUPRAVENTRICULAR PREMATURE COMPLEXES IN A BIGEMINAL PATTERN NONSPECIFIC T-WAVE ABNORMALITY ABNORMAL RHYTHM ECG Electronically Signed on 06-25-2019 7:33:42 EST by Loretta Boone
== END 2019-06-23 06:15 | disposition home or self-care (01) ==
LOC: M ED 03:54
DX: J20.9 Acute bronchitis, unspecified (principal); R07.81 Pleurodynia; R94.31 Abnormal electrocardiogram [ECG] [EKG]; E11.40 Type 2 diabetes mellitus with diabetic neuropathy, unspecified; G47.33 Obstructive sleep apnea (adult) (pediatric); I10 Essential (primary) hypertension; E66.9 Obesity, unspecified; Z88.2 Allergy status to sulfonamides; Z79.51 Long term (current) use of inhaled steroids; Z79.83 Long term (current) use of bisphosphonates; Z79.84 Long term (current) use of oral hypoglycemic drugs; Z79.899 Other long term (current) drug therapy
CPT/HCPCS: 36415; 71045; 80047; 80048; 80076; 82550; 82553; 82803; 83735; 83880; 84436; 84443; 84484; 85025; 85027; 93005; 93041; 94640; 94760; 96374; 96375; 99284; C9290; J1100; J1885

== ENCOUNTER → 2019-06-23 | Outpatient (CLI) | payer MEDICARE ==
[~2019-06-23] MED LIST changes: +AUGM500T34 PO; +JARD1TAB; -NS 1,000 ML IV ONE; +PRED20TA PO; +VENTAER
[2019-06-23 07:17] LABS: HEMOGLOBIN 15.4 g/dl (13.5-17.5); MEAN CORPUSCULAR HEMOGLOBIN 30.7 pg (27.0-33.0); MEAN CORPUSCULAR HGB CONC 34.2 g/dl (32.0-36.5); MEAN CORPUSCULAR VOLUME 89.6 fl (80.0-96.0); PLATELET COUNT, AUTOMATED 268 10^3/uL (150-450); RED BLOOD COUNT 5.02 10^6/uL (4.30-6.10); WHITE BLOOD COUNT 9.4 10^3/uL (4.0-10.0)
[2019-06-23 07:40] LABS: BLOOD UREA NITROGEN 23 MG/DL (7-18); CALCIUM LEVEL 9.1 MG/DL (8.8-10.2); CARBON DIOXIDE LEVEL 24 MEQ/L (21-32); CHLORIDE LEVEL 98 MEQ/L (98-107); GLOMERULAR FILTRATION RATE > 60.0 (>49); GLUCOSE, FASTING 290 MG/DL (70-100); MAGNESIUM LEVEL 2.1 MG/DL (1.8-2.4); POTASSIUM SERUM 4.1 MEQ/L (3.5-5.1); SODIUM LEVEL 134 MEQ/L (136-145)
== END ==
LOC: M LAB 06:40
PROVIDERS: ATTEND Family Medicine
DX: E11.40 Type 2 diabetes mellitus with diabetic neuropathy, unspecified (principal); G47.33 Obstructive sleep apnea (adult) (pediatric)

== ENCOUNTER → 2019-10-06 | Outpatient (REF) | payer MEDICARE, OTHER ==
[~2019-10-06] MED LIST changes: +AUGM500T34 PO; +JARD1TAB; +PRED20TA PO; +VENTAER
== END ==
LOC: M LAB REF 12:27
PROVIDERS: ATTEND Physician Assistant Medical
DX: L02.212 Cutaneous abscess of back [any part, except buttock and flank] (principal)

== ENCOUNTER → 2020-01-06 | Outpatient (REF) | payer MEDICARE ==
[~2020-01-06] MED LIST changes: +AMLO1TAB24 PO; -AMLO5TAB6 PO
[2020-01-06 16:17] LABS: CREATININE, URINE 75.8 MG/DL
== END ==
LOC: M LAB REF 15:15
PROVIDERS: ATTEND Nurse Practitioner Family
DX: E11.65 Type 2 diabetes mellitus with hyperglycemia (principal)

== ENCOUNTER → 2020-02-05 | Outpatient (CLI) | payer MEDICARE ==
[2020-02-05 19:36] LABS: ALBUMIN 4.1 GM/DL (3.2-5.2); ALT/SGPT 41 U/L (12-78); BILIRUBIN,TOTAL 0.5 MG/DL (0.2-1.0); BLOOD UREA NITROGEN 21 MG/DL (7-18); CALCIUM LEVEL 9.5 MG/DL (8.8-10.2); CARBON DIOXIDE LEVEL 29 MEQ/L (21-32); CHLORIDE LEVEL 101 MEQ/L (98-107); CHOLESTEROL LEVEL 156 MG/DL (<200); CREATININE FOR GFR 1.01 MG/DL (0.70-1.30); GLOMERULAR FILTRATION RATE > 60.0 (>49); GLUCOSE, FASTING 174 MG/DL (70-100); HDL CHOLESTEROL 75 MG/DL (>40); LDL CHOLESTEROL 57 MG/DL (<100); NON-HDL-C 81 MG/DL; POTASSIUM SERUM 4.3 MEQ/L (3.5-5.1); SODIUM LEVEL 136 MEQ/L (136-145); TOTAL PROTEIN 7.9 GM/DL (6.4-8.2); TRIGLYCERIDES LEVEL 121 MG/DL (<150)
== END ==
LOC: M WUC 11:11
PROVIDERS: ATTEND Nurse Practitioner Family
DX: E11.65 Type 2 diabetes mellitus with hyperglycemia (principal)

== ENCOUNTER → 2020-05-07 | Outpatient (CLI) | payer SELFPAY | LOC: M LABSMTC 12:55 | PROVIDERS: ATTEND Pediatrics | DX: Z20.828 Contact with and (suspected) exposure to other viral communicable diseases (principal) ==

== ENCOUNTER → 2020-06-03 | Outpatient (REF) | payer MEDICARE | LOC: M LAB REF 17:20 | PROVIDERS: ATTEND Physician Assistant | DX: B00.1 Herpesviral vesicular dermatitis (principal) | CPT/HCPCS: 11104; 88305; G0463 ==

== ENCOUNTER → 2020-06-22 | Outpatient (REF) | payer MEDICARE ==
[2020-06-23 12:09] LABS: HEMOGLOBIN A1c 7.3 %
[2020-06-23 12:27] LABS: ALBUMIN 3.8 GM/DL (3.2-5.2); ALT/SGPT 36 U/L (12-78); BILIRUBIN,TOTAL 0.5 MG/DL (0.2-1.0); BLOOD UREA NITROGEN 21 MG/DL (7-18); CALCIUM LEVEL 9.1 MG/DL (8.8-10.2); CARBON DIOXIDE LEVEL 31 MEQ/L (21-32); CHLORIDE LEVEL 102 MEQ/L (98-107); CREATININE FOR GFR 1.03 MG/DL (0.70-1.30); GLOMERULAR FILTRATION RATE > 60.0 (>49); GLUCOSE, FASTING 111 MG/DL (70-100); MAGNESIUM LEVEL 2.1 MG/DL (1.8-2.4); POTASSIUM SERUM 5.4 MEQ/L (3.5-5.1); SODIUM LEVEL 138 MEQ/L (136-145); TOTAL PROTEIN 7.1 GM/DL (6.4-8.2)
[2020-06-23 12:35] LABS: HEPATITIS B SURFACE ANTIBODY NEGATIVE (POSITIVE)
[2020-06-23 12:45] LABS: HEPATITIS B SURFACE ANTIGEN NEGATIVE (NEGATIVE)
[2020-06-23 13:13] LABS: HEPATITIS C VIRUS ABY INDEX 0.2 INDEX (<0.8)
[2020-06-23 13:14] LABS: HIV 1&2 SCREEN CENTAUR NEGATIVE (NEGATIVE)
== END ==
LOC: M SFHCCLAY 13:35
PROVIDERS: ATTEND Family Medicine
DX: E11.9 Type 2 diabetes mellitus without complications (principal); Z20.9 Contact with and (suspected) exposure to unspecified communicable disease
CPT/HCPCS: 80053; 83036; 83735; 86706; 86708; 86803; 87340; 87389; G0463

== ENCOUNTER 2021-01-03 18:34 | Emergency (ER) | payer MEDICARE ==
[~2021-01-03] VITALS: Ht 167.6 cm; Wt 125.0 kg
[~2021-01-03 18:34] MED LIST changes: +GABA-282 PO; -GABA-843 PO
[2021-01-03 22:19] LABS: BASO % 0.4 % (0.0-1.0); EOS # 0.2 10^3/uL (0.0-0.5); EOS % 1.8 % (0.0-3.0); HEMATOCRIT 47.5 % (42.0-52.0); HEMOGLOBIN 15.9 g/dl (13.5-17.5); MEAN CORPUSCULAR HEMOGLOBIN 30.6 pg (27.0-33.0); MEAN CORPUSCULAR HGB CONC 33.5 g/dl (32.0-36.5); MEAN CORPUSCULAR VOLUME 91.5 fl (80.0-96.0); MONO % 10.7 % (2.0-8.0); NEUTROPHILS # 5.3 10^3/uL (1.5-8.5); NEUTROPHILS % 55.3 % (36.0-66.0); PLATELET COUNT, AUTOMATED 296 10^3/uL (150-450); RED BLOOD COUNT 5.19 10^6/uL (4.30-6.10); WHITE BLOOD COUNT 9.6 10^3/uL (4.0-10.0)
[2021-01-03 22:32] LABS: INR 0.93; PROTHROMBIN TIME 12.7 SECONDS (12.5-14.3)
--- NOTE | 2021-01-03 22:38 | ECGEPIP ---
[facility] - ED Test Date: 2021-01-03 Pat Name: GULSHAN CORDON Department: Room: - Gender: Male Pet Care Attendant: OLIVE : 1955 Requested By: AYDEN Messina Order Number: [id number] Reading MD: Magdaleno Suh Measurements Intervals [place] Rate: 80 P: 76 MA: 198 QRS: -12 QRSD: 102 T: 59 QT: 380 QTc: 438 Interpretive Statements Sinus rhythm with premature atrial complexes Minimal voltage criteria for LVH, may be normal variant Delayed anterior R wave progression Electronically Signed on 01-03-2021 22:38:08 EDT by Magdaleno Suh
[2021-01-03 22:40] LABS: D-DIMER QUANT 369.73 ng/ml (<500)
--- NOTE | 2021-01-03 22:52 | REPVR ---
PROCEDURE INFORMATION: Exam: XR Chest Exam date and time: 01/03/2021 9:46 PM Age: 65 years old Clinical indication: Chest wall pain; Additional info: Chest pain TECHNIQUE: Imaging protocol: XR of the chest. Views: 1 view. COMPARISON: [facility] PORTABLE CHEST X-RAY 06/23/2019 4:23 AM FINDINGS: Lungs: No consolidation. Pleural spaces: Unremarkable. No pleural effusion. No pneumothorax. Heart/Mediastinum: Cardiac silhouette is likely within normal limits for portable technique. Bones/joints: Unremarkable. IMPRESSION: No acute process. Electronically signed by: Cale Hannon On 01/03/2021 22:51:58 PM
[2021-01-03 23:04] LABS: ALBUMIN 3.7 GM/DL (3.2-5.2); ALT/SGPT 44 U/L (12-78); BILIRUBIN,DIRECT 0.2 MG/DL (0.0-0.2); BILIRUBIN,TOTAL 0.4 MG/DL (0.2-1.0); BLOOD UREA NITROGEN 23 MG/DL (7-18); CALCIUM LEVEL 9.5 MG/DL (8.8-10.2); CARBON DIOXIDE LEVEL 27 MEQ/L (21-32); CHLORIDE LEVEL 106 MEQ/L (98-107); CK-MB VALUE MASS 3.2 NG/ML (<3.6); CPK CREATINE PHOSPHOKINASE 256 U/L (39-308); CREATININE FOR GFR 0.84 MG/DL (0.70-1.30); GLOMERULAR FILTRATION RATE > 60.0 (>49); GLUCOSE, FASTING 123 MG/DL (70-100); LIPASE 132 U/L (73-393); MB/CK RELATIVE INDEX 1.25 (< OR =4); POTASSIUM SERUM 3.6 MEQ/L (3.5-5.1); SODIUM LEVEL 142 MEQ/L (136-145); TOTAL PROTEIN 7.4 GM/DL (6.4-8.2); TROPONIN I < 0.02 NG/ML (< 0.10)
[2021-01-03] MEDS ORDERED: NS 500 ML IV ONE (23:10)
[2021-01-03 23:27] LABS: MAGNESIUM LEVEL 2.4 MG/DL (1.8-2.4)
[2021-01-04 02:09] LABS: CK-MB VALUE MASS 2.9 NG/ML (<3.6); CPK CREATINE PHOSPHOKINASE 208 U/L (39-308); MB/CK RELATIVE INDEX 1.39 (< OR =4); TROPONIN I < 0.02 NG/ML (< 0.10)
[2021-01-04 02:22] VITALS: BP 154/74
== END 2021-01-04 02:23 | disposition home or self-care (01) ==
LOC: M ED 18:34
DX: R07.9 Chest pain, unspecified (principal); E87.6 Hypokalemia; E11.40 Type 2 diabetes mellitus with diabetic neuropathy, unspecified; Z88.1 Allergy status to other antibiotic agents; Z88.2 Allergy status to sulfonamides

== ENCOUNTER → 2021-03-02 | Outpatient (REF) | payer MEDICARE ==
[~2021-03-02] MED LIST changes: -KLOR10TA76 PO; +POTA-136 PO
[2021-03-02 16:35] LABS: HEMOGLOBIN A1c 8.3 %
[2021-03-02 16:41] LABS: ALBUMIN 3.6 GM/DL (3.2-5.2); ALT/SGPT 42 U/L (12-78); BILIRUBIN,TOTAL 0.3 MG/DL (0.2-1.0); BLOOD UREA NITROGEN 15 MG/DL (7-18); CALCIUM LEVEL 9.4 MG/DL (8.8-10.2); CARBON DIOXIDE LEVEL 29 MEQ/L (21-32); CHLORIDE LEVEL 103 MEQ/L (98-107); CHOLESTEROL LEVEL 165 MG/DL (<200); CHOLESTEROL RISK RATIO 2.115 (<5); CREATININE FOR GFR 0.75 MG/DL (0.70-1.30); GLOMERULAR FILTRATION RATE > 60.0 (>49); GLUCOSE, FASTING 142 MG/DL (70-100); HDL CHOLESTEROL 78 MG/DL (>40); LDL CHOLESTEROL 65 MG/DL (<100); NON-HDL-C 87 MG/DL; SODIUM LEVEL 138 MEQ/L (136-145); TOTAL PROTEIN 7.3 GM/DL (6.4-8.2); TRIGLYCERIDES LEVEL 111 MG/DL (<150)
== END ==
LOC: M SFHCCLAY 10:40
PROVIDERS: ATTEND Family Medicine
DX: E11.9 Type 2 diabetes mellitus without complications (principal); I10 Essential (primary) hypertension
CPT/HCPCS: 80053; 80061; 83036; 84443; G0103; G0463

== ENCOUNTER → 2021-04-11 | Outpatient (REF) | payer MEDICARE ==
[2021-04-11 20:15] LABS: CREATININE, URINE 35.1 MG/DL; MAU/CREAT RATIO 333.3 MCG/MG (0.0-30.0)
== END ==
LOC: M LAB REF 17:49
PROVIDERS: ATTEND Internal Medicine Endocrinology, Diabetes & Metabolism
DX: E11.65 Type 2 diabetes mellitus with hyperglycemia (principal)

== ENCOUNTER → 2021-08-30 | Outpatient (REF) | payer MEDICARE ==
[~2021-08-30] MED LIST changes: +LOSA100T45 PO; -LOSA100T50 PO
[2021-08-30 15:56] LABS: APPEARANCE, URINE CLEAR (CLEAR); BACTERIA, URINE AUTO NEGATIVE (NEGATIVE); BILIRUBIN, URINE AUTO NEGATIVE (NEGATIVE); BLOOD, URINE BLOOD NEGATIVE (NEGATIVE); COLOR, URINE YELLOW (YELLOW); GLUCOSE, URINE (UA) AUTO 3+ mg/dL (NEGATIVE); KETONE, URINE AUTO NEGATIVE (NEGATIVE); LEUKOCYTE ESTERASE, URINE AUTO NEGATIVE (NEGATIVE); NITRITE, URINE AUTO NEGATIVE (NEGATIVE); PROTEIN, URINE AUTO 1+ mg/dL (NEGATIVE); RBC, URINE AUTO 1 /HPF (0-3); SPECIFIC GRAVITY URINE AUTO 1.018 (1.002-1.035); SQUAMOUS EPITHELIAL CELL UR AU 0 /HPF (0-6); UROBILINOGEN, URINE AUTO 0.2 mg/dL (0.0-2.0); WBC, URINE AUTO 1 /HPF (0-3)
[2021-08-30 16:09] LABS: HEMATOCRIT 44.6 % (42.0-52.0); HEMOGLOBIN 14.9 g/dl (13.5-17.5); MEAN CORPUSCULAR HEMOGLOBIN 30.5 pg (27.0-33.0); MEAN CORPUSCULAR HGB CONC 33.4 g/dl (32.0-36.5); MEAN CORPUSCULAR VOLUME 91.2 fl (80.0-96.0); PLATELET COUNT, AUTOMATED 292 10^3/uL (150-450); RED BLOOD COUNT 4.89 10^6/uL (4.30-6.10); WHITE BLOOD COUNT 9.1 10^3/uL (4.0-10.0)
[2021-08-30 16:30] LABS: ALBUMIN 3.6 GM/DL (3.2-5.2); ALT/SGPT 44 U/L (12-78); BILIRUBIN,TOTAL 0.3 MG/DL (0.2-1.0); BLOOD UREA NITROGEN 18 MG/DL (7-18); CARBON DIOXIDE LEVEL 29 MEQ/L (21-32); CHLORIDE LEVEL 102 MEQ/L (98-107); CREATININE FOR GFR 0.93 MG/DL (0.70-1.30); GLOMERULAR FILTRATION RATE > 60.0 (>49); GLUCOSE, FASTING 211 MG/DL (70-100); POTASSIUM SERUM 3.9 MEQ/L (3.5-5.1); SODIUM LEVEL 139 MEQ/L (136-145)
[2021-08-30 19:37] LABS: HEMOGLOBIN A1c 9.3 %
== END ==
LOC: M SFHCCLAY 13:24
PROVIDERS: ATTEND Family Medicine
DX: R19.5 Other fecal abnormalities (principal); Z79.899 Other long term (current) drug therapy

== ENCOUNTER → 2022-01-12 | Outpatient (REF) | payer MEDICARE ==
[2022-01-12 17:49] LABS: APPEARANCE, URINE CLEAR (CLEAR); BACTERIA, URINE AUTO NEGATIVE (NEGATIVE); BILIRUBIN, URINE AUTO NEGATIVE (NEGATIVE); BLOOD, URINE BLOOD NEGATIVE (NEGATIVE); COLOR, URINE YELLOW (YELLOW); GLUCOSE, URINE (UA) AUTO NEGATIVE (NEGATIVE); KETONE, URINE AUTO TRACE mg/dL (NEGATIVE); LEUKOCYTE ESTERASE, URINE AUTO NEGATIVE (NEGATIVE); NITRITE, URINE AUTO NEGATIVE (NEGATIVE); PROTEIN, URINE AUTO NEGATIVE (NEGATIVE); RBC, URINE AUTO 1 /HPF (0-3); SPECIFIC GRAVITY URINE AUTO 1.018 (1.002-1.035); SQUAMOUS EPITHELIAL CELL UR AU 0 /HPF (0-6); UROBILINOGEN, URINE AUTO 0.2 mg/dL (0.0-2.0); WBC, URINE AUTO 0 /HPF (0-3)
[2022-01-12 18:20] LABS: HEMOGLOBIN A1c 6.8 %
[2022-01-12 18:37] LABS: BLOOD UREA NITROGEN 15 MG/DL (7-18); CALCIUM LEVEL 9.7 MG/DL (8.8-10.2); CARBON DIOXIDE LEVEL 28 MEQ/L (21-32); CHLORIDE LEVEL 106 MEQ/L (98-107); CREATININE FOR GFR 1.04 MG/DL (0.70-1.30); GLOMERULAR FILTRATION RATE > 60.0 (>49); GLUCOSE, FASTING 110 MG/DL (70-100); POTASSIUM SERUM 4.1 MEQ/L (3.5-5.1); SODIUM LEVEL 142 MEQ/L (136-145)
[2022-01-12 18:46] LABS: MALB URINE SIEMENS 60.5 MG/L; MAU/CREAT RATIO 47.2 MCG/MG (0.0-30.0)
== END ==
LOC: M SFHCCLAY 15:16
PROVIDERS: ATTEND Family Medicine
DX: E11.40 Type 2 diabetes mellitus with diabetic neuropathy, unspecified (principal)

== ENCOUNTER → 2022-03-21 | Outpatient (CLI) | payer MEDICARE ==
[2022-03-21 12:48] LABS: ALBUMIN 3.5 GM/DL (3.2-5.2); ALT/SGPT 33 U/L (12-78); BILIRUBIN,TOTAL 0.5 MG/DL (0.2-1.0); BLOOD UREA NITROGEN 18 MG/DL (7-18); CARBON DIOXIDE LEVEL 27 MEQ/L (21-32); CHLORIDE LEVEL 103 MEQ/L (98-107); CHOLESTEROL LEVEL 130 MG/DL (<200); CHOLESTEROL RISK RATIO 1.688 (<5); CREATININE FOR GFR 0.86 MG/DL (0.70-1.30); GLOMERULAR FILTRATION RATE > 60.0 (>49); GLUCOSE, FASTING 212 MG/DL (70-100); HDL CHOLESTEROL 77 MG/DL (>40); LDL CHOLESTEROL 30 MG/DL (<100); NON-HDL-C 53 MG/DL; POTASSIUM SERUM 4.2 MEQ/L (3.5-5.1); SODIUM LEVEL 134 MEQ/L (136-145); TRIGLYCERIDES LEVEL 113 MG/DL (<150)
[2022-03-21 12:52] LABS: HEMOGLOBIN A1c 6.3 %
== END ==
LOC: M LAB 10:59
PROVIDERS: ATTEND Family Medicine
DX: E11.9 Type 2 diabetes mellitus without complications (principal)

== ENCOUNTER → 2022-10-11 | Outpatient (CLI) | payer MEDICARE ==
[2022-10-11 11:23] LABS: APPEARANCE, URINE CLEAR (CLEAR); BACTERIA, URINE AUTO NEGATIVE (NEGATIVE); BILIRUBIN, URINE AUTO NEGATIVE (NEGATIVE); BLOOD, URINE BLOOD 1+ (NEGATIVE); COLOR, URINE YELLOW (YELLOW); GLUCOSE, URINE (UA) AUTO NEGATIVE (NEGATIVE); KETONE, URINE AUTO NEGATIVE (NEGATIVE); LEUKOCYTE ESTERASE, URINE AUTO NEGATIVE (NEGATIVE); MUCUS, URINE SMALL (NEGATIVE); NITRITE, URINE AUTO NEGATIVE (NEGATIVE); PROTEIN, URINE AUTO 2+ mg/dL (NEGATIVE); RBC, URINE AUTO 0 /HPF (0-3); SPECIFIC GRAVITY URINE AUTO 1.014 (1.002-1.035); SQUAMOUS EPITHELIAL CELL UR AU 0 /HPF (0-6); UROBILINOGEN, URINE AUTO 0.2 mg/dL (0.0-2.0); WBC, URINE AUTO 1 /HPF (0-3)
[2022-10-11 11:58] LABS: CREATININE, URINE 56.7 MG/DL
[2022-10-11 12:01] LABS: ALBUMIN 3.5 G/DL (3.2-5.2); ALKALINE PHOSPHATASE 66 U/L (46-116); ALT/SGPT 33 U/L (7.0-40); AST/SGOT 21 U/L (<34); BILIRUBIN,TOTAL 0.4 MG/DL (0.3-1.2); BLOOD UREA NITROGEN 19 MG/DL (9-23); CALCIUM LEVEL 8.7 MG/DL (8.3-10.6); CARBON DIOXIDE LEVEL 27 MMOL/L (20-31); CHLORIDE LEVEL 104 MMOL/L (98-107); CREATININE FOR GFR 0.71 MG/DL (0.70-1.30); FREE T4 1.14 NG/DL (0.89-1.76); GLOMERULAR FILTRATION RATE > 60.0 (>49); GLUCOSE, FASTING 180 MG/DL (74-106); POTASSIUM SERUM 4.1 MMOL/L (3.5-5.1); SODIUM LEVEL 139 MMOL/L (136-145); TOTAL PROTEIN 6.7 G/DL (5.7-8.2)
[2022-10-11 12:02] LABS: THYROID STIMULATING HORMONE 1.022 uIU/ML (0.55-4.78)
[2022-10-11 12:10] LABS: MAU/CREAT RATIO 1192.2 MCG/MG (0.0-30.0)
== END ==
LOC: M LAB 10:34
PROVIDERS: ATTEND Family Medicine
DX: E11.40 Type 2 diabetes mellitus with diabetic neuropathy, unspecified (principal); I10 Essential (primary) hypertension

== ENCOUNTER → 2023-04-04 | Outpatient (CLI) | payer MEDICARE ==
[~2023-04-04] MED LIST changes: +LORA1TAB23 PO; -LORA1TAB4 PO; -LOSA100T45 PO; +LOSA100T46 PO
== END ==
LOC: M CLY 14:39
PROVIDERS: ATTEND Family Medicine
DX: M25.471 Effusion, right ankle (principal)

== ENCOUNTER → 2023-04-04 | Outpatient (CLI) | payer MEDICARE | LOC: M CLY 14:32 | PROVIDERS: ATTEND Family Medicine | DX: M25.571 Pain in right ankle and joints of right foot (principal) ==

== ENCOUNTER → 2023-04-17 | Outpatient (CLI) | payer MEDICARE ==
[2023-04-17 17:37] LABS: BASO % 0.3 % (0.0-1.0); EOS # 0.1 10^3/uL (0.0-0.5); EOS % 0.7 % (0.0-3.0); HEMATOCRIT 41.8 % (42.0-52.0); HEMOGLOBIN 14.3 g/dl (13.5-17.5); LYMPH # 2.5 10^3/uL (1.5-5.0); LYMPH % 23.1 % (24.0-44.0); MEAN CORPUSCULAR HEMOGLOBIN 31.2 pg (27.0-33.0); MEAN CORPUSCULAR HGB CONC 34.2 g/dl (32.0-36.5); MEAN CORPUSCULAR VOLUME 91.3 fl (80.0-96.0); MONO % 8.9 % (2.0-8.0); NEUTROPHILS # 7.1 10^3/uL (1.5-8.5); NEUTROPHILS % 66.3 % (36.0-66.0); PLATELET COUNT, AUTOMATED 270 10^3/uL (150-450); RED BLOOD COUNT 4.58 10^6/uL (4.30-6.10); WHITE BLOOD COUNT 10.7 10^3/uL (4.0-10.0)
[2023-04-17 18:13] LABS: THYROID STIMULATING HORMONE 1.129 uIU/ML (0.55-4.78)
[2023-04-17 18:14] LABS: ALBUMIN 3.4 G/DL (3.2-5.2); ALKALINE PHOSPHATASE 67 U/L (46-116); ALT/SGPT 40 U/L (7.0-40); AST/SGOT 27 U/L (<34); BILIRUBIN,TOTAL 0.3 MG/DL (0.3-1.2); BLOOD UREA NITROGEN 18 MG/DL (9-23); CARBON DIOXIDE LEVEL 26 MMOL/L (20-31); CHLORIDE LEVEL 103 MMOL/L (98-107); CHOLESTEROL LEVEL 153 MG/DL (<200); CHOLESTEROL RISK RATIO 2.04 (<5); CREATININE FOR GFR 0.62 MG/DL (0.70-1.30); FREE T4 1.09 NG/DL (0.89-1.76); GLOMERULAR FILTRATION RATE > 60.0 (>49); GLUCOSE, FASTING 117 MG/DL (74-106); LDL CHOLESTEROL 37.2 MG/DL (<100); POTASSIUM SERUM 4.3 MMOL/L (3.5-5.1); SODIUM LEVEL 140 MMOL/L (136-145); TOTAL PROTEIN 6.6 G/DL (5.7-8.2); TRIGLYCERIDES LEVEL 204 MG/DL (<150)
== END ==
LOC: M LAB 17:13
PROVIDERS: ATTEND Family Medicine
DX: E11.9 Type 2 diabetes mellitus without complications (principal); J45.20 Mild intermittent asthma, uncomplicated

== ENCOUNTER 2023-06-21 13:39 | Inpatient (IN) | payer MEDICARE ==
[~2023-06-21] VITALS: Ht 167.6 cm; Wt 124.3 kg
[2023-06-21] MEDS ORDERED: MAGN200T PO (14:36)
[2023-06-21] MEDS ORDERED: INSULANT SC (14:36)
[2023-06-21] MEDS ORDERED: MED REC IN PROGRESS XX SCH (14:50)
[2023-06-21 14:54] LABS: BASO % 0.1 % (0.0-1.0); EOS # 0.1 10^3/uL (0.0-0.5); EOS % 0.6 % (0.0-3.0); HEMATOCRIT 40.5 % (42.0-52.0); HEMOGLOBIN 13.2 g/dl (13.5-17.5); LYMPH # 1.4 10^3/uL (1.5-5.0); LYMPH % 14.8 % (24.0-44.0); MEAN CORPUSCULAR HEMOGLOBIN 30.3 pg (27.0-33.0); MEAN CORPUSCULAR HGB CONC 32.6 g/dl (32.0-36.5); MEAN CORPUSCULAR VOLUME 93.1 fl (80.0-96.0); MONO # 0.9 10^3/uL (0.0-0.8); MONO % 10.1 % (2.0-8.0); NEUTROPHILS # 6.8 10^3/uL (1.5-8.5); NEUTROPHILS % 73.5 % (36.0-66.0); PLATELET COUNT, AUTOMATED 243 10^3/uL (150-450); RED BLOOD COUNT 4.35 10^6/uL (4.30-6.10); WHITE BLOOD COUNT 9.3 10^3/uL (4.0-10.0)
[2023-06-21 15:08] LABS: INR 1.05; PROTHROMBIN TIME 13.4 SECONDS (12.5-14.5)
[2023-06-21 15:09] LABS: PARTIAL THROMBOPLASTIN TIME 23.1 SECONDS (24.8-34.2)
[2023-06-21 15:26] LABS: ALBUMIN 3.3 G/DL (3.2-5.2); ALKALINE PHOSPHATASE 61 U/L (46-116); ALT/SGPT 60 U/L (7.0-40); AST/SGOT 64 U/L (<34); BILIRUBIN,DIRECT 0.1 MG/DL (<0.4); BILIRUBIN,TOTAL 0.5 MG/DL (0.3-1.2); BLOOD UREA NITROGEN 17 MG/DL (9-23); CALCIUM LEVEL 8.7 MG/DL (8.3-10.6); CARBON DIOXIDE LEVEL 28 MMOL/L (20-31); CHLORIDE LEVEL 102 MMOL/L (98-107); CK-MB VALUE MASS 2.6 NG/ML (<3.6); CPK CREATINE PHOSPHOKINASE 270 U/L (46-171); CREATININE FOR GFR 0.64 MG/DL (0.70-1.30); FREE T4 1.06 NG/DL (0.89-1.76); GLOMERULAR FILTRATION RATE > 60.0 (>49); GLUCOSE, FASTING 197 MG/DL (74-106); LIPASE 29 U/L (12-53); MB/CK RELATIVE INDEX 0.96 (< OR =4); POTASSIUM SERUM 5.6 MMOL/L (3.5-5.1); SODIUM LEVEL 135 MMOL/L (136-145); THYROID STIMULATING HORMONE 1.152 uIU/ML (0.55-4.78); TOTAL PROTEIN 6.4 G/DL (5.7-8.2)
[2023-06-21 15:35] LABS: RSV AMPLIFICATION NEGATIVE (NEGATIVE)
[2023-06-21] MEDS ORDERED: ISOVUE-370 76% 100ML VIAL As Ordered ONE (15:35)
[2023-06-21 16:46] LABS: CK-MB VALUE MASS 3.1 NG/ML (<3.6)
[2023-06-21 16:48] LABS: MB/CK RELATIVE INDEX 1.25 (< OR =4)
[2023-06-21] MEDS ORDERED: GABA-282 PO (16:48)
[2023-06-21 16:50] LABS: POTASSIUM SERUM 4.1 MMOL/L (3.5-5.1)
[2023-06-21] MEDS ORDERED: HOME MED LIST COMPLETE! XX SCH (16:50)
[2023-06-21] MEDS ORDERED: GLUCAGON INJ 1MG VIAL SC PRN (18:00)
[2023-06-21] MEDS ORDERED: FUROSEMIDE 40MG/4ML VIAL IV ONE (18:00)
[2023-06-21] MEDS ORDERED: GABAPENTIN 300 MG CAP PO PRN (18:00)
[2023-06-21] MEDS ORDERED: GLUCOSE 4GM CHEW TABLET PO PRN (18:00)
[2023-06-21] MEDS ORDERED: DEXTROSE 50% 50ML SYRINGE IV PRN (18:00)
[2023-06-21] MEDS ORDERED: LEVALBUTEROL HFA 45MCG/ACT 15GM INHALER INH PRN (18:35)
[2023-06-21 19:06] LABS: THYROID STIMULATING HORMONE 0.993 uIU/ML (0.55-4.78)
[2023-06-21 20:50] LABS: CK-MB VALUE MASS 3.1 NG/ML (<3.6)
[2023-06-21 20:51] LABS: MB/CK RELATIVE INDEX 1.13 (< OR =4)
[2023-06-21] MEDS: INSULIN LISPRO (NovoLOG) PER UNIT SC SCH (21:00)
[2023-06-21] MEDS: GABAPENTIN 300 MG CAP PO SCH (21:03)
[2023-06-21] MEDS: METOPROLOL TART 25 MG TABLET PO SCH (21:05)
[2023-06-21] MEDS: traZODone 100 MG TAB PO SCH (21:05)
[2023-06-21] MEDS: APIXABAN 5 MG TAB (ELIQUIS) PO SCH (21:05)
[2023-06-21 22:00] VITALS: O2SAT 94
[2023-06-21 22:30] VITALS: BP 146/72; TEMP 97.2; O2SAT 96
[2023-06-21 22:37] VITALS: O2SAT 96
[2023-06-21 23:00] VITALS: BP 102/52; TEMP 97.2; O2SAT 95
[2023-06-22] VITALS (30 sets, daily range): BP systolic 114–146; BP diastolic 53–72; TEMP 97.3–98.2; O2SAT 90–98
[2023-06-22 05:37] LABS: MEAN CORPUSCULAR HEMOGLOBIN 31.1 pg (27.0-33.0); MEAN CORPUSCULAR HGB CONC 33.3 g/dl (32.0-36.5); MEAN CORPUSCULAR VOLUME 93.3 fl (80.0-96.0); PLATELET COUNT, AUTOMATED 251 10^3/uL (150-450); RED BLOOD COUNT 4.18 10^6/uL (4.30-6.10); WHITE BLOOD COUNT 7.2 10^3/uL (4.0-10.0)
[2023-06-22 05:48] LABS: BLOOD UREA NITROGEN 17 MG/DL (9-23); CALCIUM LEVEL 8.8 MG/DL (8.3-10.6); CARBON DIOXIDE LEVEL 30 MMOL/L (20-31); CHLORIDE LEVEL 103 MMOL/L (98-107); CREATININE FOR GFR 0.75 MG/DL (0.70-1.30); GLOMERULAR FILTRATION RATE > 60.0 (>49); GLUCOSE, FASTING 154 MG/DL (74-106); MAGNESIUM LEVEL 1.7 MG/DL (1.8-2.4); POTASSIUM SERUM 3.8 MMOL/L (3.5-5.1); SODIUM LEVEL 140 MMOL/L (136-145)
[2023-06-22] MEDS: APIXABAN 5 MG TAB (ELIQUIS) PO SCH ×2 (08:08→20:31)
[2023-06-22] MEDS: METOPROLOL TART 25 MG TABLET PO SCH ×2 (08:09→20:31)
[2023-06-22] MEDS: SPIRONOLACTONE 25 MG TAB PO SCH (08:10)
[2023-06-22] MEDS: GABAPENTIN 300 MG CAP PO SCH ×2 (08:10→20:30)
[2023-06-22] MEDS: INSULIN LISPRO (NovoLOG) PER UNIT SC SCH ×4 (08:10→20:31)
[2023-06-22] MEDS: LEVEMIR (INSULIN DETEMIR) 1 UNITS/0.01ML SC SCH (08:11)
[2023-06-22] MEDS: MAG SULF 1GM/100ML (MAG RUN) 1 GM in IV 1 EA IV SCH ×2 (08:14→11:30)
[2023-06-22] MEDS ORDERED: LEVEMIR (INSULIN DETEMIR) 1 UNITS/0.01ML SC SCH (09:00)
[2023-06-22] MEDS ORDERED: ELIQ5TAB PO (11:12)
[2023-06-22] MEDS ORDERED: FUROSEMIDE 40MG/4ML VIAL IV ONE (11:15)
[2023-06-22] MEDS ORDERED: POTASSIUM CHLORIDE 10MEQ SR TABLET PO ONE (14:15)
[2023-06-22] MEDS ORDERED: JARD1TAB PO (18:17)
[2023-06-22] MEDS ORDERED: ENTR1TAB PO (18:17)
[2023-06-22] MEDS: traZODone 100 MG TAB PO SCH (20:31)
[2023-06-22] MEDS: LORazepam 0.5 MG TAB PO PRN (20:31)
[2023-06-23] VITALS (17 sets, daily range): BP systolic 110–145; BP diastolic 53–68; TEMP 97–98.2; O2SAT 89–98
[2023-06-23 06:11] LABS: BLOOD UREA NITROGEN 23 MG/DL (9-23); CARBON DIOXIDE LEVEL 31 MMOL/L (20-31); CHLORIDE LEVEL 104 MMOL/L (98-107); CREATININE FOR GFR 0.72 MG/DL (0.70-1.30); GLOMERULAR FILTRATION RATE > 60.0 (>49); GLUCOSE, FASTING 178 MG/DL (74-106); MAGNESIUM LEVEL 1.9 MG/DL (1.8-2.4); POTASSIUM SERUM 4.2 MMOL/L (3.5-5.1); SODIUM LEVEL 139 MMOL/L (136-145)
[2023-06-23] MEDS: LEVEMIR (INSULIN DETEMIR) 1 UNITS/0.01ML SC SCH (09:18)
[2023-06-23] MEDS: INSULIN LISPRO (NovoLOG) PER UNIT SC SCH ×4 (09:18→20:47)
[2023-06-23] MEDS: APIXABAN 5 MG TAB (ELIQUIS) PO SCH ×2 (09:19→20:48)
[2023-06-23] MEDS: GABAPENTIN 300 MG CAP PO SCH ×2 (09:19→20:48)
[2023-06-23] MEDS: METOPROLOL TART 25 MG TABLET PO SCH ×2 (09:19→20:48)
[2023-06-23] MEDS: SPIRONOLACTONE 25 MG TAB PO SCH (09:19)
[2023-06-23] MEDS ORDERED: FUROSEMIDE 40MG/4ML VIAL IV ONE (11:05)
[2023-06-23] MEDS: ENTRESTO 24-26MG TABLET (SACUBITRIL/VALSARTAN) PO SCH (20:47)
[2023-06-23] MEDS: traZODone 100 MG TAB PO SCH (20:48)
[2023-06-23] MEDS: LORazepam 0.5 MG TAB PO PRN (20:48)
[2023-06-24 03:42] VITALS: BP 101/49; TEMP 96.5; O2SAT 96
[2023-06-24 08:18] LABS: BLOOD UREA NITROGEN 24 MG/DL (9-23); CALCIUM LEVEL 8.7 MG/DL (8.3-10.6); CARBON DIOXIDE LEVEL 30 MMOL/L (20-31); CHLORIDE LEVEL 107 MMOL/L (98-107); GLOMERULAR FILTRATION RATE > 60.0 (>49); GLUCOSE, FASTING 187 MG/DL (74-106); MAGNESIUM LEVEL 1.8 MG/DL (1.8-2.4); POTASSIUM SERUM 3.9 MMOL/L (3.5-5.1); SODIUM LEVEL 143 MMOL/L (136-145)
[2023-06-24] MEDS: LEVEMIR (INSULIN DETEMIR) 1 UNITS/0.01ML SC SCH (08:22)
[2023-06-24] MEDS: ENTRESTO 24-26MG TABLET (SACUBITRIL/VALSARTAN) PO SCH (08:22)
[2023-06-24] MEDS: INSULIN LISPRO (NovoLOG) PER UNIT SC SCH ×2 (08:22→11:55)
[2023-06-24 08:23] VITALS: BP 136/61
[2023-06-24] MEDS: SPIRONOLACTONE 25 MG TAB PO SCH (08:23)
[2023-06-24] MEDS: METOPROLOL TART 25 MG TABLET PO SCH (08:23)
[2023-06-24] MEDS: GABAPENTIN 300 MG CAP PO SCH (08:23)
[2023-06-24] MEDS: APIXABAN 5 MG TAB (ELIQUIS) PO SCH (08:23)
[2023-06-24 08:34] VITALS: BP 136/61; TEMP 97.7; O2SAT 97
[2023-06-24] MEDS ORDERED: FURO20TA2 PO (11:23)
[2023-06-24] MEDS ORDERED: POTA-149 PO (11:23)
[2023-06-24] MEDS ORDERED: METO1TAB87 PO (11:23)
[2023-06-24] MEDS ORDERED: METO25TA PO (11:24)
== END 2023-06-24 13:55 | disposition home health service (06) | DRG 291 ==
LOC: M ED 13:39 → M ED INP 17:59 → M PCU 22:29
PROVIDERS: ADMIT Internal Medicine; ATTEND Internal Medicine
DX: I11.0 Hypertensive heart disease with heart failure (principal); I50.31 Acute diastolic (congestive) heart failure; Z68.42 Body mass index [BMI] 45.0-49.9, adult; I48.91 Unspecified atrial fibrillation; E66.01 Morbid (severe) obesity due to excess calories; J45.20 Mild intermittent asthma, uncomplicated; G47.33 Obstructive sleep apnea (adult) (pediatric); E11.51 Type 2 diabetes mellitus with diabetic peripheral angiopathy without gangrene; F41.9 Anxiety disorder, unspecified; F32.A Depression, unspecified; Z91.119 Patient's noncompliance with dietary regimen due to unspecified reason; Z79.4 Long term (current) use of insulin; Z88.2 Allergy status to sulfonamides; Z79.899 Other long term (current) drug therapy; Z79.01 Long term (current) use of anticoagulants

== ENCOUNTER → 2023-07-03 | Outpatient (REF) | payer MEDICARE ==
[~2023-07-03] MED LIST changes: +ELIQ5TAB PO; +ENTR1TAB PO; +FURO20TA2 PO; +INSULANT SC; +JARD1TAB PO; +MAGN200T PO; +METO1TAB87 PO; +METO25TA PO; +POTA-149 PO
[2023-07-03 18:14] LABS: HEMATOCRIT 45.4 % (42.0-52.0); MEAN CORPUSCULAR HEMOGLOBIN 30.7 pg (27.0-33.0); MEAN CORPUSCULAR VOLUME 92.8 fl (80.0-96.0); PLATELET COUNT, AUTOMATED 330 10^3/uL (150-450); RED BLOOD COUNT 4.89 10^6/uL (4.30-6.10); WHITE BLOOD COUNT 8.7 10^3/uL (4.0-10.0)
[2023-07-03 18:43] LABS: HEMOGLOBIN A1c 7.7 % (4.0-6.0)
[2023-07-03 18:45] LABS: BLOOD UREA NITROGEN 28 MG/DL (9-23); CALCIUM LEVEL 8.7 MG/DL (8.3-10.6); CARBON DIOXIDE LEVEL 28 MMOL/L (20-31); CHLORIDE LEVEL 105 MMOL/L (98-107); CREATININE FOR GFR 0.73 MG/DL (0.70-1.30); GLOMERULAR FILTRATION RATE > 60.0 (>49); GLUCOSE, FASTING 83 MG/DL (74-106); POTASSIUM SERUM 4.6 MMOL/L (3.5-5.1); SODIUM LEVEL 141 MMOL/L (136-145)
== END ==
LOC: M SFHCCLAY 14:49
PROVIDERS: ATTEND Family Medicine
DX: G47.33 Obstructive sleep apnea (adult) (pediatric) (principal); I48.91 Unspecified atrial fibrillation; E11.40 Type 2 diabetes mellitus with diabetic neuropathy, unspecified; I50.30 Unspecified diastolic (congestive) heart failure

== ENCOUNTER 2023-07-09 17:39 | Emergency (ER) | payer MEDICARE ==
[~2023-07-09] VITALS: Ht 162.6 cm; Wt 126.4 kg
[2023-07-09 17:41] VITALS: TEMP 97.1
[2023-07-09] MEDS ORDERED: POTA1TAB23 (17:57)
[2023-07-09] MEDS ORDERED: FUROSEMIDE 40MG/4ML VIAL IV ONE (20:00)
[2023-07-09 20:10] LABS: BASO % 0.2 % (0.0-1.0); EOS # 0.1 10^3/uL (0.0-0.5); EOS % 0.6 % (0.0-3.0); HEMATOCRIT 43.3 % (42.0-52.0); HEMOGLOBIN 14.5 g/dl (13.5-17.5); LYMPH # 2.6 10^3/uL (1.5-5.0); LYMPH % 25.9 % (24.0-44.0); MEAN CORPUSCULAR HEMOGLOBIN 30.9 pg (27.0-33.0); MEAN CORPUSCULAR HGB CONC 33.5 g/dl (32.0-36.5); MEAN CORPUSCULAR VOLUME 92.1 fl (80.0-96.0); MONO # 0.9 10^3/uL (0.0-0.8); MONO % 9.3 % (2.0-8.0); NEUTROPHILS # 6.3 10^3/uL (1.5-8.5); NEUTROPHILS % 63.3 % (36.0-66.0); PLATELET COUNT, AUTOMATED 310 10^3/uL (150-450)
[2023-07-09 20:26] LABS: ALBUMIN 3.5 G/DL (3.2-5.2); ALKALINE PHOSPHATASE 66 U/L (46-116); ALT/SGPT 35 U/L (7.0-40); AST/SGOT 46 U/L (<34); BILIRUBIN,DIRECT < 0.1 MG/DL (<0.4); BILIRUBIN,TOTAL 0.3 MG/DL (0.3-1.2); BLOOD UREA NITROGEN 23 MG/DL (9-23); CARBON DIOXIDE LEVEL 24 MMOL/L (20-31); CHLORIDE LEVEL 107 MMOL/L (98-107); CK-MB VALUE MASS 1.8 NG/ML (<3.6); CPK CREATINE PHOSPHOKINASE 261 U/L (46-171); CREATININE FOR GFR 0.72 MG/DL (0.70-1.30); GLOMERULAR FILTRATION RATE > 60.0 (>49); GLUCOSE, FASTING 93 MG/DL (74-106); MB/CK RELATIVE INDEX 0.68 (< OR =4); POTASSIUM SERUM 5.1 MMOL/L (3.5-5.1); SODIUM LEVEL 137 MMOL/L (136-145); TOTAL PROTEIN 7.1 G/DL (5.7-8.2)
[2023-07-09 20:45] LABS: RSV AMPLIFICATION NEGATIVE (NEGATIVE)
[2023-07-09 21:31] VITALS: BP 145/90; O2SAT 94
== END 2023-07-09 21:36 | disposition home or self-care (01) ==
LOC: M ED 17:39
DX: R06.02 Shortness of breath (principal); R60.9 Edema, unspecified; I48.0 Paroxysmal atrial fibrillation; I45.81 Long QT syndrome; E11.9 Type 2 diabetes mellitus without complications; J44.9 Chronic obstructive pulmonary disease, unspecified; I50.22 Chronic systolic (congestive) heart failure; Z86.79 Personal history of other diseases of the circulatory system; Z79.52 Long term (current) use of systemic steroids; Z79.01 Long term (current) use of anticoagulants; Z79.4 Long term (current) use of insulin; Z79.899 Other long term (current) drug therapy
CPT/HCPCS: 71045; 80048; 80076; 82550; 82553; 84484; 85025; 87631; 93005; 93041; 94760; 96374; 99285; J1940

== ENCOUNTER 2023-08-28 23:17 | Emergency (ER) | payer MEDICARE, SELFPAY ==
[~2023-08-28] VITALS: Ht 167.6 cm; Wt 132.6 kg
[~2023-08-28 23:17] MED LIST changes: +POTA1TAB23
[2023-08-29 02:30] LABS: BASO % 0.4 % (0.0-1.0); EOS # 0.5 10^3/uL (0.0-0.5); EOS % 6.5 % (0.0-3.0); HEMATOCRIT 46.1 % (42.0-52.0); LYMPH # 3.2 10^3/uL (1.5-5.0); LYMPH % 39.1 % (24.0-44.0); MEAN CORPUSCULAR HEMOGLOBIN 30.1 pg (27.0-33.0); MEAN CORPUSCULAR HGB CONC 32.5 g/dl (32.0-36.5); MEAN CORPUSCULAR VOLUME 92.4 fl (80.0-96.0); MONO # 0.9 10^3/uL (0.0-0.8); MONO % 10.5 % (2.0-8.0); NEUTROPHILS # 3.5 10^3/uL (1.5-8.5); PLATELET COUNT, AUTOMATED 240 10^3/uL (150-450); RED BLOOD COUNT 4.99 10^6/uL (4.30-6.10); WHITE BLOOD COUNT 8.1 10^3/uL (4.0-10.0)
[2023-08-29 02:53] LABS: ALBUMIN 3.4 G/DL (3.2-5.2); ALKALINE PHOSPHATASE 57 U/L (46-116); ALT/SGPT 30 U/L (7.0-40); AST/SGOT 20 U/L (<34); BILIRUBIN,DIRECT 0.2 MG/DL (<0.4); BILIRUBIN,TOTAL 0.4 MG/DL (0.3-1.2); BLOOD UREA NITROGEN 23 MG/DL (9-23); CALCIUM LEVEL 8.4 MG/DL (8.3-10.6); CARBON DIOXIDE LEVEL 27 MMOL/L (20-31); CHLORIDE LEVEL 106 MMOL/L (98-107); CK-MB VALUE MASS 4.4 NG/ML (<3.6); CPK CREATINE PHOSPHOKINASE 300 U/L (46-171); CREATININE FOR GFR 0.83 MG/DL (0.70-1.30); GLOMERULAR FILTRATION RATE > 60.0 (>49); GLUCOSE, FASTING 144 MG/DL (74-106); MB/CK RELATIVE INDEX 1.46 (< OR =4); POTASSIUM SERUM 4.9 MMOL/L (3.5-5.1); SODIUM LEVEL 138 MMOL/L (136-145); TOTAL PROTEIN 6.6 G/DL (5.7-8.2)
[2023-08-29 04:51] LABS: CK-MB VALUE MASS 3.9 NG/ML (<3.6)
[2023-08-29 04:52] LABS: MB/CK RELATIVE INDEX 1.25 (< OR =4)
[2023-08-29] MEDS: FUROSEMIDE 40MG/4ML VIAL IV ONE (06:32)
[2023-08-29] MEDS: methylPREDNISolone 125MG 2ML VIAL IV ONE (06:32)
[2023-08-29 07:23] LABS: CK-MB VALUE MASS 4.3 NG/ML (<3.6)
[2023-08-29 07:24] LABS: MB/CK RELATIVE INDEX 1.58 (< OR =4)
[2023-08-29] MEDS: IPRATROPIUM 0.5MG/ALBUTEROL 2.5MG INH SOL UD 3ML (DUONEB) NEB ONE (08:25)
[2023-08-29] MEDS ORDERED: VENTAER INH (10:17)
[2023-08-29 10:25] VITALS: BP 143/60; TEMP 97.8; O2SAT 91
[2023-08-29 10:27] VITALS: O2SAT 90
[2023-08-29] MEDS: ENTRESTO 24-26MG TABLET (SACUBITRIL/VALSARTAN) PO SCH (10:54)
[2023-08-29] MEDS: APIXABAN 5 MG TAB (ELIQUIS) PO ONE (10:54)
== END 2023-08-29 11:21 | disposition home or self-care (01) ==
LOC: M ED 23:17
DX: R06.02 Shortness of breath (principal); I50.9 Heart failure, unspecified; E11.9 Type 2 diabetes mellitus without complications; I10 Essential (primary) hypertension; G47.33 Obstructive sleep apnea (adult) (pediatric); Z86.79 Personal history of other diseases of the circulatory system; Z88.2 Allergy status to sulfonamides; Z79.01 Long term (current) use of anticoagulants; Z79.52 Long term (current) use of systemic steroids; Z79.4 Long term (current) use of insulin; Z79.899 Other long term (current) drug therapy; Z79.891 Long term (current) use of opiate analgesic
CPT/HCPCS: 71045; 80048; 80076; 82550; 82553; 83880; 84484; 85025; 87486; 87581; 87633; 87798; 93005; 93041; 94640; 94760; 96374; 99285; J1940; J2930

== ENCOUNTER → 2023-11-19 | Outpatient (CLI) | payer MEDICARE ==
[~2023-11-19] MED LIST changes: +BUPR-597 PO; -BUPR300T92 PO; +VENTAER INH
[2023-11-19 15:34] LABS: BASO % 0.4 % (0.0-1.0); EOS # 0.1 10^3/uL (0.0-0.5); EOS % 1.5 % (0.0-3.0); HEMATOCRIT 48.6 % (42.0-52.0); HEMOGLOBIN 16.1 g/dl (13.5-17.5); LYMPH # 2.9 10^3/uL (1.5-5.0); LYMPH % 29.9 % (24.0-44.0); MEAN CORPUSCULAR HEMOGLOBIN 30.6 pg (27.0-33.0); MEAN CORPUSCULAR HGB CONC 33.1 g/dl (32.0-36.5); MEAN CORPUSCULAR VOLUME 92.4 fl (80.0-96.0); MONO # 0.6 10^3/uL (0.0-0.8); MONO % 6.5 % (2.0-8.0); NEUTROPHILS # 5.8 10^3/uL (1.5-8.5); NEUTROPHILS % 60.8 % (36.0-66.0); PLATELET COUNT, AUTOMATED 284 10^3/uL (150-450); RED BLOOD COUNT 5.26 10^6/uL (4.30-6.10); WHITE BLOOD COUNT 9.6 10^3/uL (4.0-10.0)
[2023-11-19 16:05] LABS: ALBUMIN 3.6 G/DL (3.2-5.2); ALKALINE PHOSPHATASE 79 U/L (46-116); ALT/SGPT 37 U/L (7.0-40); AST/SGOT 17 U/L (<34); BILIRUBIN,TOTAL 0.4 MG/DL (0.3-1.2); BLOOD UREA NITROGEN 28 MG/DL (9-23); CALCIUM LEVEL 8.9 MG/DL (8.3-10.6); CARBON DIOXIDE LEVEL 24 MMOL/L (20-31); CHLORIDE LEVEL 100 MMOL/L (98-107); CHOLESTEROL LEVEL 141 MG/DL (<200); CHOLESTEROL RISK RATIO 2.32 (<5); CREATININE FOR GFR 0.91 MG/DL (0.70-1.30); GLOMERULAR FILTRATION RATE > 60.0 (>49); GLUCOSE, FASTING 274 MG/DL (74-106); HDL CHOLESTEROL 60.7 MG/DL (>40); LDL CHOLESTEROL 28.5 MG/DL (<100); MAGNESIUM LEVEL 1.8 MG/DL (1.8-2.4); NON-HDL-C 80.3 MG/DL; SODIUM LEVEL 136 MMOL/L (136-145); THYROID STIMULATING HORMONE 0.857 uIU/ML (0.55-4.78); TOTAL PROTEIN 6.9 G/DL (5.7-8.2); TRIGLYCERIDES LEVEL 259 MG/DL (<150)
[2023-11-19 16:13] LABS: HEMOGLOBIN A1c 7.8 % (4.0-6.0)
== END ==
LOC: M PLALAB 11:46
PROVIDERS: ATTEND Internal Medicine Cardiovascular Disease
DX: E78.2 Mixed hyperlipidemia (principal); Z13.1 Encounter for screening for diabetes mellitus; R06.02 Shortness of breath; Z13.29 Encounter for screening for other suspected endocrine disorder; I48.0 Paroxysmal atrial fibrillation; I50.9 Heart failure, unspecified

== ENCOUNTER → 2024-01-30 | Outpatient (CLI) | payer MEDICARE ==
[2024-01-30 09:11] LABS: BASO % 0.1 % (0.0-1.0); EOS # 0.1 10^3/uL (0.0-0.5); EOS % 1.6 % (0.0-3.0); HEMATOCRIT 44.3 % (42.0-52.0); HEMOGLOBIN 14.7 g/dl (13.5-17.5); LYMPH # 1.9 10^3/uL (1.5-5.0); LYMPH % 27.3 % (24.0-44.0); MEAN CORPUSCULAR HEMOGLOBIN 31.3 pg (27.0-33.0); MEAN CORPUSCULAR HGB CONC 33.2 g/dl (32.0-36.5); MEAN CORPUSCULAR VOLUME 94.3 fl (80.0-96.0); MONO # 0.8 10^3/uL (0.0-0.8); MONO % 11.9 % (2.0-8.0); NEUTROPHILS # 3.9 10^3/uL (1.5-8.5); NEUTROPHILS % 57.6 % (36.0-66.0); PLATELET COUNT, AUTOMATED 230 10^3/uL (150-450); WHITE BLOOD COUNT 6.8 10^3/uL (4.0-10.0)
[2024-01-30 09:32] LABS: HEMOGLOBIN A1c 7.3 % (4.0-6.0)
== END ==
LOC: M LAB 08:40
PROVIDERS: ATTEND Internal Medicine Cardiovascular Disease
DX: I48.11 Longstanding persistent atrial fibrillation (principal); E11.9 Type 2 diabetes mellitus without complications; I50.42 Chronic combined systolic (congestive) and diastolic (congestive) heart failure; I11.0 Hypertensive heart disease with heart failure; G47.33 Obstructive sleep apnea (adult) (pediatric)

== ENCOUNTER → 2024-02-06 | Outpatient (REF) | payer MEDICARE ==
[2024-02-06 17:14] LABS: ALBUMIN 3.7 G/DL (3.2-5.2); ALKALINE PHOSPHATASE 79 U/L (46-116); ALT/SGPT 29 U/L (7.0-40); AST/SGOT 18 U/L (<34); BILIRUBIN,TOTAL 0.4 MG/DL (0.3-1.2); BLOOD UREA NITROGEN 28 MG/DL (9-23); CALCIUM LEVEL 9.3 MG/DL (8.3-10.6); CARBON DIOXIDE LEVEL 23 MMOL/L (20-31); CHLORIDE LEVEL 104 MMOL/L (98-107); CREATININE FOR GFR 0.89 MG/DL (0.70-1.30); GLOMERULAR FILTRATION RATE > 60.0 (>49); GLUCOSE, FASTING 207 MG/DL (74-106); MAGNESIUM LEVEL 2.1 MG/DL (1.8-2.4); POTASSIUM SERUM 4.2 MMOL/L (3.5-5.1); SODIUM LEVEL 139 MMOL/L (136-145); TOTAL PROTEIN 7.2 G/DL (5.7-8.2)
== END ==
LOC: M SFHCCLAY 12:02
PROVIDERS: ATTEND Family Medicine
DX: E11.9 Type 2 diabetes mellitus without complications (principal); I50.30 Unspecified diastolic (congestive) heart failure

== ENCOUNTER 2024-02-27 22:18 | Emergency (ER) | payer MEDICARE ==
[~2024-02-27] VITALS: Ht 167.6 cm; Wt 137.0 kg
[2024-02-27 22:21] VITALS: TEMP 97.6
[2024-02-28] MEDS: FUROSEMIDE 40MG/4ML VIAL IV ONE (03:30)
[2024-02-28 03:52] LABS: LIPASE 32 U/L (12-53)
[2024-02-28 03:53] LABS: BASO % 0.3 % (0.0-1.0); EOS # 0.1 10^3/uL (0.0-0.5); HEMATOCRIT 43.2 % (42.0-52.0); HEMOGLOBIN 14.6 g/dl (13.5-17.5); LYMPH % 28.5 % (24.0-44.0); MEAN CORPUSCULAR HEMOGLOBIN 31.8 pg (27.0-33.0); MEAN CORPUSCULAR HGB CONC 33.8 g/dl (32.0-36.5); MEAN CORPUSCULAR VOLUME 94.1 fl (80.0-96.0); MONO # 0.9 10^3/uL (0.0-0.8); NEUTROPHILS % 56.2 % (36.0-66.0); PLATELET COUNT, AUTOMATED 232 10^3/uL (150-450); RED BLOOD COUNT 4.59 10^6/uL (4.30-6.10); WHITE BLOOD COUNT 7.1 10^3/uL (4.0-10.0)
[2024-02-28 03:55] LABS: ALBUMIN 3.6 G/DL (3.2-5.2); ALKALINE PHOSPHATASE 74 U/L (46-116); ALT/SGPT 27 U/L (7.0-40); AST/SGOT 16 U/L (<34); BILIRUBIN,DIRECT 0.2 MG/DL (<0.4); BILIRUBIN,TOTAL 0.4 MG/DL (0.3-1.2); BLOOD UREA NITROGEN 27 MG/DL (9-23); CALCIUM LEVEL 9.2 MG/DL (8.3-10.6); CARBON DIOXIDE LEVEL 28 MMOL/L (20-31); CHLORIDE LEVEL 104 MMOL/L (98-107); CK-MB VALUE MASS 1.9 NG/ML (<3.6); CPK CREATINE PHOSPHOKINASE 341 U/L (46-171); CREATININE FOR GFR 0.87 MG/DL (0.70-1.30); GLOMERULAR FILTRATION RATE > 60.0 (>49); GLUCOSE, FASTING 121 MG/DL (74-106); MAGNESIUM LEVEL 2.1 MG/DL (1.8-2.4); MB/CK RELATIVE INDEX 0.55 (< OR =4); PHOSPHORUS LEVEL 5.3 MG/DL (2.4-5.1); POTASSIUM SERUM 3.7 MMOL/L (3.5-5.1); SODIUM LEVEL 138 MMOL/L (136-145)
[2024-02-28 03:58] LABS: THYROID STIMULATING HORMONE 2.287 uIU/ML (0.55-4.78)
[2024-02-28 03:59] LABS: FREE T4 1.28 NG/DL (0.89-1.76)
[2024-02-28 04:07] LABS: INR 1.03; PARTIAL THROMBOPLASTIN TIME 29.1 SECONDS (24.8-34.2); PROTHROMBIN TIME 13.2 SECONDS (12.5-14.5)
[2024-02-28 06:46] VITALS: BP 151/66; O2SAT 93
== END 2024-02-28 07:07 | disposition home or self-care (01) ==
LOC: M ED 22:18
DX: J18.9 Pneumonia, unspecified organism (principal); J44.9 Chronic obstructive pulmonary disease, unspecified; I50.22 Chronic systolic (congestive) heart failure; I48.91 Unspecified atrial fibrillation; E11.9 Type 2 diabetes mellitus without complications; I10 Essential (primary) hypertension; E78.5 Hyperlipidemia, unspecified; K76.0 Fatty (change of) liver, not elsewhere classified; E66.9 Obesity, unspecified; F10.10 Alcohol abuse, uncomplicated; Z88.2 Allergy status to sulfonamides; Z79.52 Long term (current) use of systemic steroids; Z79.01 Long term (current) use of anticoagulants; Z79.4 Long term (current) use of insulin; Z79.899 Other long term (current) drug therapy
CPT/HCPCS: 71045; 80048; 80076; 82550; 82553; 83690; 83735; 83880; 84100; 84439; 84443; 84484; 85025; 85610; 85730; 93005; 93041; 94760; 96374; 99284; J1940

== ENCOUNTER → 2024-03-04 | Outpatient (REF) | payer MEDICARE | LOC: M SFHCCLAY 14:57 | PROVIDERS: ATTEND Family Medicine | DX: T14.8XXA Other injury of unspecified body region, initial encounter (principal); Z53.9 Procedure and treatment not carried out, unspecified reason ==

== ENCOUNTER → 2024-03-04 | Outpatient (REF) | payer MEDICARE | LOC: M SFHCCLAY 17:26 | PROVIDERS: ATTEND Family Medicine | DX: T14.8XXA Other injury of unspecified body region, initial encounter (principal) ==

== ENCOUNTER → 2024-04-01 | Outpatient (CLI) | payer MEDICARE, MEDICAID ==
[~2024-04-01] MED LIST changes: +GABA-1172 PO; -GABA-282 PO
== END ==
LOC: M RADPRO 09:56
PROVIDERS: ATTEND Physician Assistant
DX: J98.6 Disorders of diaphragm (principal)

== ENCOUNTER → 2024-04-14 | Outpatient (CLI) | payer MEDICARE, MEDICAID ==
[2024-04-14 10:37] LABS: BLOOD UREA NITROGEN 22 MG/DL (9-23); CALCIUM LEVEL 9.1 MG/DL (8.3-10.6); CARBON DIOXIDE LEVEL 28 MMOL/L (20-31); CHLORIDE LEVEL 105 MMOL/L (98-107); CREATININE FOR GFR 0.99 MG/DL (0.70-1.30); GLOMERULAR FILTRATION RATE > 60.0 (>49); GLUCOSE, FASTING 134 MG/DL (74-106); POTASSIUM SERUM 4.6 MMOL/L (3.5-5.1); SODIUM LEVEL 140 MMOL/L (136-145)
== END ==
LOC: M LAB 08:09
PROVIDERS: ATTEND Family Medicine
DX: I50.32 Chronic diastolic (congestive) heart failure (principal); E11.9 Type 2 diabetes mellitus without complications

== ENCOUNTER → 2024-04-16 | Outpatient (REF) | payer MEDICARE ==
[2024-04-17 19:03] LABS: HIV 1&2 SCREEN NEGATIVE (NEGATIVE)
[2024-04-17 19:11] LABS: HEPATITIS C VIRUS ABY INDEX < 0.02 INDEX (<0.8)
== END ==
LOC: M SFHCCLAY 15:26
PROVIDERS: ATTEND Family Medicine
DX: Z20.9 Contact with and (suspected) exposure to unspecified communicable disease (principal)

== ENCOUNTER → 2024-05-02 | Outpatient (CLI) | payer MEDICARE ==
[2024-05-02 12:13] LABS: ALBUMIN 3.8 G/DL (3.2-5.2); ALKALINE PHOSPHATASE 88 U/L (40-129); ALT/SGPT 22 U/L (7.0-40); AST/SGOT 17 U/L (<34); BILIRUBIN,TOTAL 0.6 MG/DL (0.3-1.2); BLOOD UREA NITROGEN 26 MG/DL (9-23); CALCIUM LEVEL 9.3 MG/DL (8.3-10.6); CARBON DIOXIDE LEVEL 29 MMOL/L (20-31); CHLORIDE LEVEL 100 MMOL/L (98-107); CREATININE FOR GFR 1.06 MG/DL (0.70-1.30); GLOMERULAR FILTRATION RATE > 60.0 (>42); GLUCOSE, FASTING 129 MG/DL (74-106); MAGNESIUM LEVEL 2.2 MG/DL (1.8-2.4); POTASSIUM SERUM 4.1 MMOL/L (3.5-5.1); SODIUM LEVEL 136 MMOL/L (136-145); TOTAL PROTEIN 7.4 G/DL (5.7-8.2)
== END ==
LOC: M LAB 08:59
PROVIDERS: ATTEND Internal Medicine Cardiovascular Disease
DX: I48.11 Longstanding persistent atrial fibrillation (principal); I50.9 Heart failure, unspecified; I11.0 Hypertensive heart disease with heart failure; E78.2 Mixed hyperlipidemia

== ENCOUNTER → 2024-06-06 | Outpatient (CLI) | payer MEDICARE ==
[2024-06-06 14:05] LABS: BASO % 0.2 % (0.0-1.0); EOS # 0.1 10^3/uL (0.0-0.5); EOS % 0.7 % (0.0-3.0); HEMATOCRIT 43.1 % (42.0-52.0); HEMOGLOBIN 14.6 g/dl (13.5-17.5); LYMPH # 2.7 10^3/uL (1.5-5.0); LYMPH % 31.9 % (24.0-44.0); MEAN CORPUSCULAR HEMOGLOBIN 30.9 pg (27.0-33.0); MEAN CORPUSCULAR HGB CONC 33.9 g/dl (32.0-36.5); MEAN CORPUSCULAR VOLUME 91.1 fl (80.0-96.0); MONO # 0.6 10^3/uL (0.0-0.8); MONO % 7.6 % (2.0-8.0); NEUTROPHILS # 4.9 10^3/uL (1.5-8.5); NEUTROPHILS % 58.8 % (36.0-66.0); PLATELET COUNT, AUTOMATED 264 10^3/uL (150-450); RED BLOOD COUNT 4.73 10^6/uL (4.30-6.10); WHITE BLOOD COUNT 8.4 10^3/uL (4.0-10.0)
[2024-06-06 14:31] LABS: ALBUMIN 3.7 G/DL (3.2-5.2); ALKALINE PHOSPHATASE 97 U/L (40-129); ALT/SGPT 22 U/L (7.0-40); AST/SGOT 16 U/L (<34); BILIRUBIN,TOTAL 0.4 MG/DL (0.3-1.2); BLOOD UREA NITROGEN 26 MG/DL (9-23); CALCIUM LEVEL 9.5 MG/DL (8.3-10.6); CARBON DIOXIDE LEVEL 27 MMOL/L (20-31); CHLORIDE LEVEL 101 MMOL/L (98-107); CREATININE FOR GFR 0.98 MG/DL (0.70-1.30); GLOMERULAR FILTRATION RATE > 60.0 (>42); GLUCOSE, FASTING 115 MG/DL (74-106); MAGNESIUM LEVEL 2.2 MG/DL (1.8-2.4); POTASSIUM SERUM 3.9 MMOL/L (3.5-5.1); SODIUM LEVEL 140 MMOL/L (136-145); TOTAL PROTEIN 7.6 G/DL (5.7-8.2)
== END ==
LOC: M LAB 13:40
PROVIDERS: ATTEND Internal Medicine Cardiovascular Disease
DX: I50.42 Chronic combined systolic (congestive) and diastolic (congestive) heart failure (principal); I48.11 Longstanding persistent atrial fibrillation; R06.02 Shortness of breath

== ENCOUNTER → 2024-07-16 | Outpatient (REF) | payer MEDICARE | LOC: M SFHCCLAY 14:44 | PROVIDERS: ATTEND Physician Assistant | DX: E11.40 Type 2 diabetes mellitus with diabetic neuropathy, unspecified (principal); G47.33 Obstructive sleep apnea (adult) (pediatric); I50.32 Chronic diastolic (congestive) heart failure; Z98.890 Other specified postprocedural states; Z95.5 Presence of coronary angioplasty implant and graft; G89.29 Other chronic pain; J45.20 Mild intermittent asthma, uncomplicated; I48.91 Unspecified atrial fibrillation; I10 Essential (primary) hypertension ==

== ENCOUNTER → 2024-07-17 | Outpatient (CLI) | payer MEDICARE ==
[2024-07-17 14:57] LABS: ALBUMIN 3.7 G/DL (3.2-5.2); ALKALINE PHOSPHATASE 85 U/L (40-129); ALT/SGPT 26 U/L (7.0-40); AST/SGOT 19 U/L (<34); BILIRUBIN,TOTAL 0.5 MG/DL (0.3-1.2); BLOOD UREA NITROGEN 22 MG/DL (9-23); CALCIUM LEVEL 8.9 MG/DL (8.3-10.6); CARBON DIOXIDE LEVEL 27 MMOL/L (20-31); CHLORIDE LEVEL 102 MMOL/L (98-107); CHOLESTEROL LEVEL 89 MG/DL (<200); CHOLESTEROL RISK RATIO 1.82 (<5); GLOMERULAR FILTRATION RATE > 60.0 (>42); GLUCOSE, FASTING 75 MG/DL (74-106); HDL CHOLESTEROL 48.8 MG/DL (>40); NON-HDL-C 40.2 MG/DL; POTASSIUM SERUM 4.1 MMOL/L (3.5-5.1); SODIUM LEVEL 144 MMOL/L (136-145); TRIGLYCERIDES LEVEL 121 MG/DL (<150)
[2024-07-17 15:10] LABS: CREATININE, URINE 34.1 MG/DL; MAU/CREAT RATIO 87.9 MCG/MG (0.0-30.0)
[2024-07-17 15:18] LABS: HEMOGLOBIN A1c 7.1 % (4.0-6.0)
[2024-07-17 15:29] LABS: HIV 1&2 SCREEN NEGATIVE (NEGATIVE)
[2024-07-17 15:37] LABS: HEPATITIS C VIRUS ABY INDEX 0.03 INDEX (<0.8)
== END ==
LOC: M LAB 12:44
PROVIDERS: ATTEND Physician Assistant
DX: E11.40 Type 2 diabetes mellitus with diabetic neuropathy, unspecified (principal); G47.33 Obstructive sleep apnea (adult) (pediatric); I50.32 Chronic diastolic (congestive) heart failure; Z98.890 Other specified postprocedural states; Z95.5 Presence of coronary angioplasty implant and graft; G89.29 Other chronic pain; J45.20 Mild intermittent asthma, uncomplicated; I48.91 Unspecified atrial fibrillation; I11.0 Hypertensive heart disease with heart failure

== ENCOUNTER → 2024-09-29 | Outpatient (CLI) | payer MEDICARE ==
[2024-09-29 12:29] LABS: BASO % 0.3 % (0.0-1.0); EOS # 0.1 10^3/uL (0.0-0.5); EOS % 0.7 % (0.0-3.0); HEMATOCRIT 42.4 % (42.0-52.0); HEMOGLOBIN 14.1 g/dl (13.5-17.5); LYMPH # 1.9 10^3/uL (1.5-5.0); MEAN CORPUSCULAR HEMOGLOBIN 30.5 pg (27.0-33.0); MEAN CORPUSCULAR HGB CONC 33.3 g/dl (32.0-36.5); MEAN CORPUSCULAR VOLUME 91.8 fl (80.0-96.0); MONO # 0.7 10^3/uL (0.0-0.8); MONO % 9.4 % (2.0-8.0); NEUTROPHILS # 4.5 10^3/uL (1.5-8.5); NEUTROPHILS % 62.2 % (36.0-66.0); PLATELET COUNT, AUTOMATED 246 10^3/uL (150-450); RED BLOOD COUNT 4.62 10^6/uL (4.30-6.10); WHITE BLOOD COUNT 7.3 10^3/uL (4.0-10.0)
[2024-09-29 13:00] LABS: CALCIUM LEVEL 8.8 MG/DL (8.3-10.6); POTASSIUM SERUM 4.1 MMOL/L (3.5-5.1)
== END ==
LOC: M LAB 11:39
PROVIDERS: ATTEND Internal Medicine Cardiovascular Disease
DX: I48.11 Longstanding persistent atrial fibrillation (principal)

== ENCOUNTER → 2024-10-02 | Outpatient (CLI) | payer MEDICARE ==
[~2024-10-02] MED LIST changes: +ISOVUE-370 76% 100ML VIAL ONE
== END ==
LOC: M PLAIMG 07:19
PROVIDERS: ATTEND Internal Medicine Cardiovascular Disease
DX: I71.20 Thoracic aortic aneurysm, without rupture, unspecified (principal)
CPT/HCPCS: 71275; 74174; Q9967

== ENCOUNTER → 2025-01-07 | Outpatient (REF) | payer MEDICARE ==
[~2025-01-07] MED LIST changes: -BUPR-597 PO; +BUPR-766 PO; -ISOVUE-370 76% 100ML VIAL ONE
== END ==
LOC: CANPREREF → M SFHCCLAY 16:01
PROVIDERS: ATTEND Physician Assistant
DX: Z53.9 Procedure and treatment not carried out, unspecified reason (principal)

== ENCOUNTER → 2025-02-01 | Outpatient (CLI) | payer MEDICARE, MEDICAID ==
[2025-02-01 09:41] LABS: BASO # 0.0 10^3/uL (0.0-0.2); BASO % 0.4 % (0.0-1.0); EOS # 0.1 10^3/uL (0.0-0.5); EOS % 0.7 % (0.0-3.0); LYMPH # 1.8 10^3/uL (1.5-5.0); LYMPH % 21.6 % (24.0-44.0); MONO # 0.8 10^3/uL (0.0-0.8); MONO % 9.5 % (2.0-8.0); NEUTROPHILS # 5.5 10^3/uL (1.5-8.5); NEUTROPHILS % 67.3 % (36.0-66.0); PLATELET COUNT, AUTOMATED 261 10^3/uL (150-450)
[2025-02-01 10:06] LABS: CALCIUM LEVEL 8.2 MG/DL (8.3-10.6); CARBON DIOXIDE LEVEL 25.0 MMOL/L (20-31); CHLORIDE LEVEL 102.0 MMOL/L (98-107); CREATININE FOR GFR 1.0 MG/DL (0.70-1.30); GLOMERULAR FILTRATION RATE 81.0 (>42); POTASSIUM SERUM 4.0 MMOL/L (3.5-5.1); SODIUM LEVEL 140.0 MMOL/L (136-145)
== END ==
LOC: M LAB 08:07 → M PLALAB 08:07
PROVIDERS: ATTEND Internal Medicine Cardiovascular Disease
DX: I48.11 Longstanding persistent atrial fibrillation (principal); I11.0 Hypertensive heart disease with heart failure; I50.42 Chronic combined systolic (congestive) and diastolic (congestive) heart failure

== ENCOUNTER → 2025-02-26 | Outpatient (CLI) | payer MEDICARE, MEDICAID | LOC: M RAD 11:08 | PROVIDERS: ATTEND Internal Medicine Cardiovascular Disease | DX: I82.401 Acute embolism and thrombosis of unspecified deep veins of right lower extremity (principal) ==

== ENCOUNTER → 2025-03-25 | Outpatient (CLI) | payer MEDICARE, MEDICAID | LOC: M RAD 14:25 | PROVIDERS: ATTEND Internal Medicine Cardiovascular Disease | DX: R06.02 Shortness of breath (principal) ==

== ENCOUNTER 2025-04-14 10:41 | Emergency (ER) | payer MEDICARE, MEDICAID ==
[~2025-04-14] VITALS: Ht 167.6 cm; Wt 124.5 kg
[2025-04-14 11:52] LABS: BASO # 0.0 10^3/uL (0.0-0.2); BASO % 0.3 % (0.0-1.0); EOS # 0.1 10^3/uL (0.0-0.5); EOS % 0.9 % (0.0-3.0); LYMPH # 1.5 10^3/uL (1.5-5.0); LYMPH % 21.3 % (24.0-44.0); MONO # 0.6 10^3/uL (0.0-0.8); MONO % 8.8 % (2.0-8.0); NEUTROPHILS # 4.7 10^3/uL (1.5-8.5); NEUTROPHILS % 67.8 % (36.0-66.0); PLATELET COUNT, AUTOMATED 261 10^3/uL (150-450)
[2025-04-14 12:21] LABS: ETHYL ALCOHOL (ETHANOL) 0.004 % (0.000-0.010)
[2025-04-14 12:23] LABS: SALICYLATE LEVEL < 3.0 MG/DL (<30)
[2025-04-14 12:24] LABS: ALT/SGPT 41 U/L (7.0-40); AST/SGOT 40 U/L (<34); CALCIUM LEVEL 8.7 MG/DL (8.3-10.6); CARBON DIOXIDE LEVEL 26 MMOL/L (20-31); CHLORIDE LEVEL 100 MMOL/L (98-107); CREATININE FOR GFR 0.92 MG/DL (0.70-1.30); GLOMERULAR FILTRATION RATE 89.5 (>42); POTASSIUM SERUM 4.3 MMOL/L (3.5-5.1); SODIUM LEVEL 139 MMOL/L (136-145)
[2025-04-14 12:27] LABS: CPK CREATINE PHOSPHOKINASE 209 U/L (46-171)
[2025-04-14 12:45] LABS: AMPHETAMINES LEVEL URINE NEGATIVE (NEGATIVE); BARBITURATES URINE NEGATIVE (NEGATIVE); BENZODIAZEPINES URINE NEGATIVE (NEGATIVE); CANNABINOIDS URINE NEGATIVE (NEGATIVE); COCAINE METABOLITE URINE NEGATIVE (NEGATIVE); METHADONE URINE NEGATIVE (NEGATIVE); OPIATES URINE NEGATIVE (NEGATIVE); PHENCYCLIDINE URINE NEGATIVE (NEGATIVE)
[2025-04-14 20:10] VITALS: BP 120/49; TEMP 98; O2SAT 100
== END 2025-04-14 20:13 | disposition home or self-care (01) ==
LOC: M ED 10:41
DX: T50.901A Poisoning by unspecified drugs, medicaments and biological substances, accidental (unintentional), initial encounter (principal); E11.9 Type 2 diabetes mellitus without complications; G47.33 Obstructive sleep apnea (adult) (pediatric); J45.909 Unspecified asthma, uncomplicated; J44.9 Chronic obstructive pulmonary disease, unspecified; I10 Essential (primary) hypertension; Z86.79 Personal history of other diseases of the circulatory system; Z87.891 Personal history of nicotine dependence; Z88.2 Allergy status to sulfonamides; Z79.52 Long term (current) use of systemic steroids; Z79.899 Other long term (current) drug therapy; Z79.01 Long term (current) use of anticoagulants; Z79.4 Long term (current) use of insulin

== ENCOUNTER → 2025-04-28 | Outpatient (REF) | payer MEDICARE, MEDICAID | LOC: M SFHCCLAY 13:39 | PROVIDERS: ATTEND Physician Assistant | DX: Z53.9 Procedure and treatment not carried out, unspecified reason (principal) ==

== ENCOUNTER → 2025-05-04 | Outpatient (REF) | payer MEDICARE, MEDICAID | LOC: M SFHCCLAY 10:31 | PROVIDERS: ATTEND Nurse Practitioner Family | DX: E11.40 Type 2 diabetes mellitus with diabetic neuropathy, unspecified (principal); Z95.5 Presence of coronary angioplasty implant and graft; G47.33 Obstructive sleep apnea (adult) (pediatric) ==

== ENCOUNTER → 2025-05-05 | Outpatient (REF) | payer MEDICARE, MEDICAID ==
[2025-05-05 18:01] LABS: ALT/SGPT 37.0 U/L (7.0-40); AST/SGOT 29.0 U/L (<34); CALCIUM LEVEL 8.7 MG/DL (8.3-10.6); CARBON DIOXIDE LEVEL 27.0 MMOL/L (20-31); CHLORIDE LEVEL 99.0 MMOL/L (98-107); CREATININE FOR GFR 0.98 MG/DL (0.70-1.30); GLOMERULAR FILTRATION RATE 82.4 (>42); POTASSIUM SERUM 4.2 MMOL/L (3.5-5.1); SODIUM LEVEL 139.0 MMOL/L (136-145)
[2025-05-05 18:17] LABS: ESTIMATED AVERAGE GLUCOSE 166.0 MG/DL (60-110)
== END ==
LOC: M SFHCCLAY 13:11
PROVIDERS: ATTEND Physician Assistant
DX: E11.40 Type 2 diabetes mellitus with diabetic neuropathy, unspecified (principal); G47.33 Obstructive sleep apnea (adult) (pediatric); Z95.5 Presence of coronary angioplasty implant and graft